=== PATIENT | female | born 1990 | race Caucasian/White ===

== ENCOUNTER 2021-05-04 04:59 | Emergency (ER) | payer OTHER, SELFPAY ==
--- NOTE | ~2021-05-04 | XR_ITS ---
EXAMINATION: XR CHEST CLINICAL INFORMATION: Chest pain COMPARISON: 07/19/2019 TECHNIQUE: Frontal view of the chest was obtained. FINDINGS: Cardiac leads overlie the chest. The lungs are well expanded. There is no focal consolidation, edema, or effusion. No pneumothorax. The cardiomediastinal silhouette is within normal limits. No acute osseous abnormality. XR/XR chest 1V IMPRESSION: Clear lungs.
[2021-05-04 05:04] VITALS: BP 124/81; PULSE 77; RESP 16; TEMP 36.9; O2SAT 99; BMI 25.0
[2021-05-04 05:15] VITALS: PULSE 72
--- NOTE | 2021-05-04 05:28 | ED.CHESTPAIN ---
HPI - Chest Pain General Chief Complaint: Chest Pain Stated Complaint: chest pain, dizziness Time Seen by Provider: 05/04/21 05:28 Source: patient Mode of arrival: ambulatory Limitations: no limitations History of Present Illness HPI narrative: Patient with increased stress anxiety of heart attack in 2018 while sleep comes here for chronic mid chest pain which is going on for months was here in 2019 for same patient describes pain in the lower chest and epigastric area states constant no relation with exercise no relation with food no nausea no vomiting no shortness of breath patient does not get good sleep lately no history of substance abuse no significant family history of coronary artery disease Related Data Previous Rx's Medication Instructions Recorded lorazepam 0.5 mg tablet (Ativan) 0.5 mg PO BEDTIME PRN #20 tab 05/04/21 omeprazole 20 mg capsule,delayed 20 mg PO DAILY #30 cap 05/04/21 release Allergies Allergy/AdvReac Type Severity Reaction Status Date / Time blackberry [BLACKBERRY] Allergy Unknown THROAT Unverified 06/10/20 17:15 CLOSES raspberry [RASPBERRY] Allergy Unknown THROAT Unverified 06/10/20 17:15 CLOSES Review of Systems Review of Systems: Yes all other systems are reviewed and are negative PMFSH Social History Social History Advance Directives: No Advance Directives Information Provided: No Patient : No Physical Exam Vital Signs: Vital Signs: Last Vital Signs Temp 98.5 F 05/04/21 05:04 Pulse 77 05/04/21 05:04 Resp 16 05/04/21 05:04 BP 124/81 05/04/21 05:04 Pulse Ox 99 05/04/21 05:04 Body Mass Index 25.0 Appearance: Alert. Oriented X3. No acute distress. Slightly anxious Eyes: No pallor or icterus ENT: Pharynx normal. Oral Mucosa moist Neck: Normal inspection. Neck supple. CVS: Normal heart rate and rhythm. Pulses normal. Respiratory: No respiratory distress. Equal air entry bilateral, no wheezing/rales/rhonchi Abdomen: Soft and mild tenderness epigastric area, Bowel sounds are present, no mass palpable, no CVA tenderness Skin: Skin warm and dry. Normal skin color. Normal skin turgor. Extremities: No lower extremity edema. No calf tenderness Neuro: Oriented X 3. MDM - Chest Pain MDM Narrative Medical decision making narrative: Patient with anxiety stress atypical chest pain for months chest x-ray and EKG normal discharge patient home on Ativan and Prilosec ECG Data ECG #1: Attestation: I personally reviewed and interpreted this ECG as follows: Interpretation: Normal sinus rhythm heart rate 81 beats per minute normal intervals normal axis no acute ST wave changes impression normal EKG Discharge Plan Discharge Clinical Impression: Atypical chest pain, Anxiety Patient Disposition: Home, Self-Care Instructions: Chest Pain (ED), Anxiety (ED) Additional Instructions: Rest at home, take medication for anxiety follow with PCP Prescriptions: New lorazepam [Ativan] 0.5 mg tablet 0.5 mg PO BEDTIME PRN (Reason: anxiety) Qty: 20 RF: 0 omeprazole 20 mg capsule,delayed release(DR/EC) 20 mg PO DAILY Qty: 30 RF: 0 Interventions: ED Discharge Assessment Last Done: 05/04/21 06:31 Discharge Date/Time: 05/04/21 06:31
--- NOTE | 2021-05-04 05:35 | ECG_ITS ---
Test Reason : CHEST PAIN Blood Pressure : / mmHG Vent. Rate : 081 BPM Atrial Rate : 081 BPM P-R Int : 154 ms QRS Dur : 082 ms QT Int : 400 ms P-R-T Axes : 029 062 041 degrees QTc Int : 464 ms Normal sinus rhythm Normal ECG When compared with ECG of 19-JUL-2019 09:28, Nonspecific T wave abnormality has replaced inverted T waves in Inferior leads T wave amplitude has increased in Anterior leads Referred By: John Brown Electronically Signed By:JAMES GALLARDO MD
[2021-05-04] MEDS: Lidocaine HCl Viscous 2 % 15 ML SOLUTION MUCOUS MEM (05:40)
[2021-05-04] MEDS: Magnesium Hydrox/Alum Hydrox 30 ML ORAL.SUSP 15 ML PO (05:40)
== END 2021-05-04 06:31 | disposition home or self-care (01) ==
PROVIDERS: Emergency Provider Internal Medicine; PCP Pediatrics
DX: R07.89 Other chest pain (principal); F41.9 Anxiety disorder, unspecified
CPT/HCPCS: 71045; 93005; 99284

== ENCOUNTER 2021-11-24 10:00 | Emergency (ER) | payer MEDICAID, SELFPAY ==
--- NOTE | ~2021-11-24 | CT_ITS ---
EXAMINATION: CT CERVICAL SPINE WITHOUT CONTRAST CLINICAL INFORMATION: Neck pain status post fall COMPARISON: Plain film study of July 18, 2012 TECHNIQUE: CT cervical spine without intrathecal contrast with coronal and sagittal reconstructions. This CT examination was performed using dose optimization techniques as appropriate, variously including the following: *Automated exposure control *Adjustment of mA and/or kV according to patient size (this includes techniques or standardized protocols for targeted exams where dose is matched to indication/reason for exam; i.e. extremities or head) *Use of iterative reconstruction technique DLP: 434 mGy-cm FINDINGS: No abnormal prevertebral soft tissue swelling is seen. Paraspinal muscle fat planes are maintained. No acute cervical spine fracture is noted. The disc spaces are maintained. No neural foraminal encroachment is appreciated. No apical lung mass is seen. CT/CT cervical spine wo con IMPRESSION: No significant abnormality of the cervical spine identified.
--- NOTE | ~2021-11-24 | MR_ITS ---
EXAMINATION: MR BRAIN WITHOUT CONTRAST CLINICAL INFORMATION: Status post fall vision changes. COMPARISON: Head CT dated 11/24/2021. TECHNIQUE: Multiplanar, multisequence imaging of the brain was performed without contrast. FINDINGS: No diffusion abnormalities are identified to suggest an acute or subacute infarct. The ventricles are normal in size. No mass effect or midline shift is seen. No brain parenchymal signal abnormality is noted. No extra-axial fluid collections are seen. The brainstem and cerebellum are normal. The gradient refocused acquisition is normal. The craniovertebral junction, marrow signal, and midline structures are normal. The major intracranial flow voids at the level of the craig of [place] are preserved. The dural venous sinus flow voids are maintained. The mastoid air cells are well aerated. There is mild mucosal thickening in the paranasal sinuses. MR/MR head/brain wo con IMPRESSION: Normal MRI of the brain. No acute process.
--- NOTE | ~2021-11-24 | CT_ITS ---
EXAMINATION: CT HEAD WITHOUT CONTRAST CLINICAL INFORMATION: Vomiting and dizziness. COMPARISON: None TECHNIQUE: Contiguous axial imaging was performed from the skull base to vertex without intravenous administration of contrast. This CT examination was performed using dose optimization techniques as appropriate, variously including the following: *Automated exposure control *Adjustment of mA and/or kV according to patient size (this includes techniques or standardized protocols for targeted exams where dose is matched to indication/reason for exam; i.e. extremities or head) *Use of iterative reconstruction technique DLP: 596 mGy-cm FINDINGS: There is no evidence of acute intracranial hemorrhage or territorial infarction. No abnormal mass effect or midline shift is seen. [place] to white matter differentiation is well preserved. No extra-axial fluid collections are identified. The ventricles are normal in size. There is no abnormal attenuation within the brain parenchyma. The osseous structures and soft tissues are normal. The mastoid air cells are well aerated. There is mild mucosal thickening in the maxillary sinuses. CT/CT head/brain wo con IMPRESSION: No acute intracranial pathology.
[2021-11-24 10:34] VITALS: BP 125/83; PULSE 103; RESP 18; TEMP 36.8; O2SAT 100; BMI 26.6
--- NOTE | 2021-11-24 11:56 | ED_ITS ---
HPI - Head Injury General Chief complaint: Head Injury Stated complaint: fell 2x wks dizzy nausea Time Seen by Provider: 11/24/21 11:47 Source: patient Mode of arrival: ambulatory Limitations: no limitations History of Present Illness HPI Narrative: 31-year-old female presents to the ER for evaluation of head injury after a fall almost 2 and half weeks ago. She reports she was walking her dog when she slipped on a patch of ice and fell backward and hit her posterior head. She did not lose consciousness and was witnessed by her father. She reports seeing stars afterward and not feeling well in the days afterward. For the last 5 days her symptoms have worsened. She reports worsening pressure behind her eyes, buzzing/white noise sounds in her ears, dizziness and recurrent vomiting. She reports 10 episodes in the last 5 days. She also reports neck pain. Denies abddominal pain or chance of . She is not on anticoagulation. She called her PCP and her Neurologist (who she sees for migrains and pineal gland tumor) instructed her to come to the ER for CT scan. MD Complaint: head injury, head pain and fall Onset (ago): week(s) Mechanism of Injury: fall Place: outdoors Loss of Consciousness: no Location of injury: occipital Severity: moderate Severity scale (1-10): 6 Quality: aching and throbbing Radiation: neck Other Injuries: none Associated symptoms: vision changes, nausea, vomiting, vertigo and neck pain Related Data Previous Rx's Medication Instructions Recorded lorazepam 0.5 mg tablet (Ativan) 0.5 mg PO BEDTIME PRN #20 tab 05/04/21 omeprazole 20 mg capsule,delayed 20 mg PO DAILY #30 cap 05/04/21 release sukhvwamyx-bndfndjjooukx-sisasxhe 1 cap PO Q8H PRN #10 cap 11/24/21 50 mg-300 mg-40 mg capsule (Fioricet) Allergies Allergy/AdvReac Type Severity Reaction Status Date / Time blackberry [BLACKBERRY] Allergy Unknown THROAT Verified 11/24/21 10:34 CLOSES raspberry [RASPBERRY] Allergy Unknown THROAT Verified 11/24/21 10:34 CLOSES Review of Systems Review of Systems: Constitutional: No Fever, No Chills ENT/Mouth: No sore throat, No Rhinorrhea, No Swallowing Difficulty Eyes: + Eye Pain, No Swelling, No Redness, +vision changes Cardiovascular: No Chest Pain, No SOB Respiratory: No Cough, No Sputum Gastrointestinal: + Nausea, + Vomiting, No Diarrhea, No abdominal Pain, No Hematochezia, No Melena Genitourinary: No Dysuria, No Urinary Frequency, No Hematuria Musculoskeletal: No joint pain, + Myalgias Skin: No Skin Lesions, No rash Neuro: No Weakness, No Numbness, + Dizziness, + Headache Psych: No Anxiety/Panic, No Depression Heme/Lymph: No Bruising PMFSH Social History Social History Patient Tobacco Use Status: Never used Tobacco Use of substances other than those prescribed or required for medical reasons: No Advance Directives: No Advance Directives Information Provided: No Physical Exam Vital Signs: Vital Signs: Last Vital Signs Temp 98.1 F 11/24/21 15:03 Pulse 86 11/24/21 15:03 Resp 16 11/24/21 15:03 BP 116/80 11/24/21 15:03 Pulse Ox 100 11/24/21 15:03 BMI result Body Mass Index 26.6 Appearance: Alert. Oriented X3. No acute distress. Head: normocephalic, atrumatic. Nontender Eyes: Pupils equal, round and reactive to light. EOMI, no nystagmus ENT: Pharynx normal. Normal EAC and TM's bilaterally. Neck: Normal inspection. Neck supple. Midline tenderness throughout CVS: Normal heart rate and rhythm. Pulses normal. Respiratory: No respiratory distress. Breath sounds normal. Abdomen: Soft and nontender. +BS x4 Skin: Skin warm and dry. Normal skin color. Normal skin turgor. No rashes. Extremities: No lower extremity edema. Atrauamtic x4 Neuro: Oriented X 3. No motor deficit. No sensory deficit. Steady gait. Course Course Course Narrative: 31-year-old female presenting to the ER with 2 weeks of symptoms after a fall with head strike. There is concern for possible slow ICH, CT scan is pending. Her neuro exam is nonfocal. Basic labs ordered as well given her vomiting. Will monitor closely. Reevaluation(s) Reevaluation #1: Labs unremarkable and CT is pending. Reevaluation #2: CT scan of her head and neck were unremarkable. Case was reviewed with Dr. Wilkins. Given her progressing in ongoing symptoms there is concern for possible missed findings on CT scan. She does have a history of a pineal gland tumor. Will proceed with MRI for further evaluation. Patient agreeable with plan. Reevaluation #3: MRI is normal. This is reassuring. At this time she is stable for discharge home with plan to follow-up with her neurologist. She will ask about a post concussion clinic. Will give a short course of Fioricet as needed for migraine headaches. Patient agrees with plan. Stable for DC. MDM - Head Injury Lab Data Result diagrams: 11/24/21 12:01 11/24/21 12:01 Labs: Lab Results 11/24/21 11/24/21 11/24/21 Range/Units 12: 12: 12:07 WBC 6.0 (4.8-10.8) X10*3/uL RBC 4.45 (4.20-5.50) X10*6/uL Hgb 13.7 (12.0-16.0) g/dl Hct 41.8 (37.0-47.0) % MCV 93.9 (80.0-98.0) fL MCH 30.8 (27.0-33.0) pg MCHC 32.8 (31.0-35.0) g/dl RDW 12.2 (11.0-16.0) % Plt Count 257 (160-400) X10*3/uL MPV 9.3 L (9.4-12.3) fL Immature Gran % (Auto) 0.3 (0.0-0.4) % Neut % (Auto) 59.1 (45-73) % Lymph % (Auto) 31.8 (20-40) % [place] % (Auto) 7.2 (2-11) % Eos % (Auto) 1.3 (0-4) % Baso % (Auto) 0.3 (0-2) % Lymph # (Auto) 1.9 (1.2-4.9) X10*3/uL [place] # (Auto) 0.4 (0.1-1.2) X10*3/uL Eos # (Auto) 0.1 (0.0-0.4) X10*3/uL Baso # (Auto) 0.0 (0.0-0.2) X10*3/uL Abs Immat Gran (auto) 0.02 (0.00-0.03) X10*3/uL Absolute Neuts (auto) 3.5 (2.0-8.3) x10*3/uL Absolute Nucleated RBC 0.000 (0.0-0.012) X10*3/uL Nucleated RBC % (auto) 0.0 (0.0-0.2) /100WBC Sodium 139 (135-145) mmol/L Potassium 4.8 (3.3-5.1) mmol/L Chloride 106 (96-108) mmol/L Carbon Dioxide 25 (22-29) mmol/L Anion Gap 13 (12-20) BUN 15 (9-16) mg/dL Creatinine 0.72 (0.5-1.4) mg/dL Estim Creat Clear Calc 123.0 Estimated GFR > 60 Random Glucose 102 (60-115) mg/dL Calcium 9.6 (8.4-10.2) mg/dL Magnesium 2.2 (1.6-2.6) mg/dL Total Bilirubin 1.3 H (0.0-1.0) mg/dL Direct Bilirubin 0.4 (0.0-0.5) mg/dL AST 13 (5-31) U/L ALT 16 (0-31) U/L Alkaline Phosphatase 52 (39-117) U/L Total Protein 7.3 (6.5-8.0) g/dL Albumin 4.5 (3.5-5.0) g/dL Urine Test NEGATIVE (NEGATIVE) Critical Care Time Critical Care Time Critical Care Time: No Discharge Plan Discharge Clinical Impression: Concussion without loss of consciousness Patient Disposition: Home, Self-Care Instructions: Concussion (ED), Chronic Post Traumatic Headache (ED) Additional Instructions: Your CT scans and MRI today were normal. This is very reassuring. Recommend ongoing rest, minimize screen time. Recommend following up with your neurologist and a post concussion clinic. Take the prescribed medication as needed for headaches. If you develop new or worsening symptoms call 911 or come back to the ER for further evaluation. Prescriptions: New wkyyeywpbv-frrtlduenhzxr-bgas [Fioricet] 50-300-40 mg capsule 1 cap PO Q8H PRN (Reason: headache) Qty: 10 0RF No Action lorazepam [Ativan] 0.5 mg tablet 0.5 mg PO BEDTIME PRN (Reason: anxiety) Qty: 20 0RF omeprazole 20 mg capsule,delayed release(DR/EC) 20 mg PO DAILY Qty: 30 0RF Referrals: Bailee Melara DO [Primary Care Provider] - 2 days (f.u concussion)
[2021-11-24 12:07] LABS: MANUAL DIFF FLAG NO
[2021-11-24 12:11] LABS: Basophils Percent Auto 0.3 % (0-2); Eosinophils Absolute Auto 0.1 X10*3/uL (0.0-0.4); Eosinophils Percent Auto 1.3 % (0-4); Hematocrit 41.8 % (37.0-47.0); Hemoglobin 13.7 g/dl (12.0-16.0); Imm Gran Abs Auto 0.02 X10*3/uL (0.00-0.03); Imm Gran Pct Auto 0.3 % (0.0-0.4); Lymphocytes Absolute Auto 1.9 X10*3/uL (1.2-4.9); Lymphocytes Percent Auto 31.8 % (20-40); Mean Corpuscular HGB Conc 32.8 g/dl (31.0-35.0); Mean Corpuscular Hemoglobin 30.8 pg (27.0-33.0); Mean Corpuscular Volume 93.9 fL (80.0-98.0); Mean Platelet Volume 9.3 fL (9.4-12.3); Monocytes Absolute Auto 0.4 X10*3/uL (0.1-1.2); Monocytes Percent Auto 7.2 % (2-11); Neutrophils Absolute Auto 3.5 x10*3/uL (2.0-8.3); Neutrophils Percent Auto 59.1 % (45-73); Platelet Count 257 X10*3/uL (160-400); Red Blood Count 4.45 X10*6/uL (4.20-5.50); Red Cell Distribution Width 12.2 % (11.0-16.0)
[2021-11-24 12:17] LABS: UPreg QC Valid YES
[2021-11-24 12:18] LABS: Urine Pregnancy NEGATIVE (NEGATIVE)
[2021-11-24 12:24] LABS: Alanine Aminotransferase 16 U/L (0-31); Albumin Level 4.5 g/dL (3.5-5.0); Alkaline Phosphatase 52 U/L (39-117); Anion Gap 13 (12-20); Aspartate Amino Transferase 13 U/L (5-31); Bilirubin Direct 0.4 mg/dL (0.0-0.5); Bilirubin Total 1.3 mg/dL (0.0-1.0); Blood Urea Nitrogen 15 mg/dL (9-16); Calcium 9.6 mg/dL (8.4-10.2); Carbon Dioxide 25 mmol/L (22-29); Chloride 106 mmol/L (96-108); Estimated Glomerular Filt Rate > 60; Glucose Random 102 mg/dL (60-115); Magnesium 2.2 mg/dL (1.6-2.6); Potassium 4.8 mmol/L (3.3-5.1); Sodium 139 mmol/L (135-145); Total Protein 7.3 g/dL (6.5-8.0)
[2021-11-24 13:11] VITALS: BP 117/75; PULSE 80; RESP 16; O2SAT 100
--- NOTE | 2021-11-24 14:16 | PC.NURSE ---
off unit to MRI
[2021-11-24 15:03] VITALS: BP 116/80; PULSE 86; RESP 16; TEMP 36.7; O2SAT 100
== END 2021-11-24 15:23 | disposition home or self-care (01) ==
PROVIDERS: Physician Assistant; Emergency Provider Emergency Medicine; PCP Pediatrics
DX: S06.0X0A Concussion without loss of consciousness, initial encounter (principal); W00.0XXA Fall on same level due to ice and snow, initial encounter; R11.0 Nausea; R42 Dizziness and giddiness; M54.2 Cervicalgia; D49.7 Neoplasm of unspecified behavior of endocrine glands and other parts of nervous system; Y93.K1 Activity, walking an animal; Y92.480 Sidewalk as the place of occurrence of the external cause; Y99.9 Unspecified external cause status
CPT/HCPCS: 36415; 70450; 70551; 72125; 80048; 80076; 81025; 83735; 85025; 99284; 99285

== ENCOUNTER 2022-01-27 17:40 | Emergency (ER) | payer MEDICAID, SELFPAY ==
[2022-01-27 18:37] VITALS: BP 135/87; PULSE 77; RESP 18; TEMP 36.1; O2SAT 100; BMI 25.8
[2022-01-27 18:49] LABS: MANUAL DIFF FLAG NO
[2022-01-27 18:56] LABS: Basophils Percent Auto 0.5 % (0-2); Eosinophils Absolute Auto 0.1 X10*3/uL (0.0-0.4); Eosinophils Percent Auto 0.8 % (0-4); Hematocrit 41.4 % (37.0-47.0); Hemoglobin 13.7 g/dl (12.0-16.0); Imm Gran Abs Auto 0.03 X10*3/uL (0.00-0.03); Imm Gran Pct Auto 0.3 % (0.0-0.4); Lymphocytes Absolute Auto 2.6 X10*3/uL (1.2-4.9); Lymphocytes Percent Auto 29.1 % (20-40); Mean Corpuscular HGB Conc 33.1 g/dl (31.0-35.0); Mean Corpuscular Hemoglobin 31.1 pg (27.0-33.0); Mean Corpuscular Volume 94.1 fL (80.0-98.0); Mean Platelet Volume 9.8 fL (9.4-12.3); Monocytes Absolute Auto 0.6 X10*3/uL (0.1-1.2); Monocytes Percent Auto 6.8 % (2-11); Neutrophils Absolute Auto 5.5 x10*3/uL (2.0-8.3); Neutrophils Percent Auto 62.5 % (45-73); Platelet Count 306 X10*3/uL (160-400); Red Cell Distribution Width 12.2 % (11.0-16.0); White Blood Count 8.8 X10*3/uL (4.8-10.8)
[2022-01-27 19:03] LABS: Anion Gap 14 (12-20); Blood Urea Nitrogen 8 mg/dL (9-16); Calcium 9.5 mg/dL (8.4-10.2); Carbon Dioxide 21 mmol/L (22-29); Chloride 108 mmol/L (96-108); Creatinine Clr Calc Pharmacy 115.7; Estimated Glomerular Filt Rate > 60; Glucose Random 99 mg/dL (60-115); Potassium 4.6 mmol/L (3.3-5.1); Sodium 138 mmol/L (135-145)
[2022-01-27 20:16] LABS: Lipase 17 U/L (8-78)
[2022-01-27 21:14] VITALS: BP 135/84; PULSE 76; RESP 16; O2SAT 100
== END 2022-01-27 23:31 | disposition left against medical advice (07) ==
PROVIDERS: Emergency Provider Emergency Medicine; PCP Pediatrics
DX: R10.9 Unspecified abdominal pain (principal)
CPT/HCPCS: 36415; 80048; 83690; 85025; 99283

== ENCOUNTER 2022-01-28 09:48 | Emergency (ER) | payer MEDICAID, SELFPAY ==
--- NOTE | ~2022-01-28 | CT_ITS ---
EXAMINATION: CT ABDOMEN AND PELVIS WITHOUT CONTRAST CLINICAL INFORMATION: Left upper quadrant and epigastric pain. COMPARISON: None TECHNIQUE: Multidetector volumetric imaging was performed from the superior aspect of the liver through the pubic symphysis. Sagittal and coronal reformatted images were obtained on the technologist's workstation. This CT examination was performed using dose optimization techniques as appropriate, variously including the following: *Automated exposure control *Adjustment of mA and/or kV according to patient size (this includes techniques or standardized protocols for targeted exams where dose is matched to indication/reason for exam; i.e. extremities or head) *Use of iterative reconstruction technique DLP: 599 mGy-cm FINDINGS: LUNG BASES: Normal. No pulmonary consolidation or pleural effusion at either lung base. LIVER: The liver has normal size, shape, and attenuation. No evidence of liver mass. GALLBLADDER AND BILIARY TREE: Gallbladder is without radiopaque stones, wall thickening or pericholecystic fluid. No dilated bile ducts. PANCREAS: Normal. No edema, pancreatic ductal dilatation or mass. SPLEEN: Normal. ADRENAL GLANDS: Normal. KIDNEYS AND URETERS: The kidneys have normal size and cortical thickness. No perinephric fluid collection. No urolithiasis or hydroureteronephrosis. BLADDER: Normal. No calculi or wall thickening. BOWEL AND PERITONEUM: Stomach is unremarkable. No dilated loops of bowel. The appendix is normal. No overt bowel wall thickening or mesenteric fat stranding. No ascites or pneumoperitoneum. ABDOMINAL WALL: Unremarkable. VASCULATURE: Unremarkable. LYMPH NODES: No pathologic sized lymph nodes in the abdomen or pelvis. No inguinal lymphadenopathy. PELVIC VISCERA: The uterus is normal in size. There appears to be a 2.7 cm subserosal leiomyoma of the anterior left uterine body. If the patient has any pelvic pain, then the uterus and adnexa could be further assessed with ultrasound. Otherwise, uterus and adnexa are unremarkable. A normal, physiologic amount of free fluid is present in the posterior cul-de-sac. SKELETAL: Unremarkable. CT/CT abdomen pelvis wo con IMPRESSION: * No specific source of epigastric or left upper quadrant pain is identified. No evidence of inflammatory change or obstruction along the gastrointestinal tract. * No evidence of urolithiasis or hydroureteronephrosis. * There appears to be a 2.7 cm subserosal leiomyoma of the uterus which is otherwise unremarkable. A normal, physiologic amount of free fluid is present in the posterior cul-de-sac.
--- NOTE | ~2022-01-28 | XR_ITS ---
EXAMINATION: XR CHEST CLINICAL INFORMATION: Rib pain. COMPARISON: 05/04/2021 chest radiograph. TECHNIQUE: 2 views of the chest were obtained. FINDINGS: No significant abnormality is noted involving the heart, lungs, mediastinum, bony thorax or soft tissues. XR/XR chest 2V IMPRESSION: No acute cardiopulmonary process.
[2022-01-28 09:55] VITALS: BP 132/78; PULSE 90; RESP 16; TEMP 36.2; O2SAT 100; BMI 25.8
--- NOTE | 2022-01-28 10:57 | ED_ITS ---
HPI - Abdominal Pain General Chief Complaint: Abdominal Pain Stated Complaint: abd pain/back pain/faint Time Seen by Provider: 01/28/22 10:56 Source: patient Mode of arrival: ambulatory Limitations: no limitations History of Present Illness HPI narrative: 31-year-old female presents with abdominal pain for the last nine months, lightheadedness and fatigue for the last 2 weeks, and bilateral leg tingling for the last week. Patient states she has had abdominal pain for 9 months, that is constant with nausea. Pain is better when she is lying down, worse with movement. States the pain is a constant 5/10, it is in her epigastrium and worse in her left upper quadrant radiating to her right upper quadrant and wrapping around her bilateral upper back. Pain does not seem to be associated with eating. Is not worse or better with eating. [place] or fatty foods do not make it worse. PCP has thought she had reflux, she had a barium swallow, and EGD, she tried omeprazole and Carafate, says nothing has helped. No vomiting, no diarrhea, normal bowel movements. No abdominal surgeries. Last menstrual period was January 22, 2022. No vaginal bleeding, vaginal discharge, or pelvic cramping. Not sexually active. Does not drink alcohol, patient states she has been taking ibuprofen for migraines often Patient states she has been lightheaded and fatigued for the last 2 weeks. States yesterday she felt very tired and faint walking out of a store. Patient has no prior history of DVT or PE, no hemoptysis, no leg swelling, no recent trauma or surgery, she is not tachycardic, she is satting 100% on room air, she does not use any estrogen or hormone products Patient states for the last week her bilateral lateral thighs have been intermittently tingling, and her feet have felt numb. States last night in bed she could not feel her toes. On exam, patient has bilateral lower extremity intact pulses, sensation, motor strength, DTRs. Patient has a normal gait. Patient has a neurologist who she last saw 3 months ago at [facility] where she had an MRI for pineal gland tumor, neurologist had no concerns Patient has a past medical history of migraines, pineal gland tumor, left ankle fracture and right wrist fracture. She is not on any daily medication. Related Data Previous Rx's Medication Instructions Recorded lorazepam 0.5 mg tablet (Ativan) 0.5 mg PO BEDTIME PRN #20 tab 05/04/21 omeprazole 20 mg capsule,delayed 20 mg PO DAILY #30 cap 05/04/21 release vfinbybsro-tnkejwwvdjspy-lqhlmfwe 1 cap PO Q8H PRN #10 cap 11/24/21 50 mg-300 mg-40 mg capsule (Fioricet) Allergies Allergy/AdvReac Type Severity Reaction Status Date / Time blackberry [BLACKBERRY] Allergy Unknown THROAT Verified 11/24/21 10:34 CLOSES raspberry [RASPBERRY] Allergy Unknown THROAT Verified 11/24/21 10:34 CLOSES Review of Systems Constitutional: Denies body ache(s), Denies chills, Reports fatigue, Denies fever(s), Denies headache(s), Denies malaise and Denies weakness Eyes: Denies blurry vision and Denies diplopia Denies vertigo, Denies dizziness, Denies otalgia, Denies headache(s), Denies mouth pain, Denies post nasal drip, Denies sinus pain, Denies sinus pressure, Denies sore throat and Denies throat swelling Cardiovascular: Denies chest pain, Denies syncope, Denies leg edema, Reports l ightheadedness, Denies Loss of Consciousness, Denies palpitations, Denies dyspnea and Denies dyspnea on exertion Respiratory: Denies chest congestion, Denies cough, Denies pain on inspiration, Denies dyspnea and Denies dyspnea on exertion Gastrointestinal: Reports abdominal pain, Denies melena, Denies hematochezia, Denies constipation, Denies diarrhea, Reports nausea and Denies vomiting Genitourinary: Denies abnormal vaginal bleeding, Denies dysuria, Denies flank pain, Denies urinary incontinence and Denies vaginal discharge Musculoskeletal: Reports numbness, Reports tingling and Reports other (pain from abdomen radiates to back) Denies confusion, Denies vertigo, Denies dizziness, Denies syncope, Denies headache(s), Reports numbness, Reports tingling and Denies weakness Psychiatric: Denies anxiety, Denies confusion and Denies depression Endocrine: Reports fatigue and Denies palpitations Allergic/Immunologic: Denies throat swelling PMFSH Social History Social History Patient Tobacco Use Status: Never used Tobacco Advance Directives: No Advance Directives Information Provided: No Physical Exam ED Vital Signs: Vital Signs - 24 hr 01/28/22 09:55 01/28/22 13:09 Temperature 97.2 F 98.2 F Pulse Rate 90 78 Respiratory Rate 16 16 Blood Pressure 132/78 112/69 Pulse Oximetry 100 100 BMI result Body Mass Index 25.8 Const General: healthy appearing, no acute distress, well developed, alert and awake; No confusion Nutritional Appearance: well nourished Orientation/consciousness: patient oriented x3 and No confusion Limitations: no limitations HENMT Head: Yes normal to inspection, Yes normocephalic and Yes atraumatic Ears: hearing grossly normal bilaterally, external ears normal, TM's normal bilaterally and EAC's normal General nose exam: Normal external nose present Face and sinus: Yes normal facial exam and Yes sinuses nontender Mouth: Normal oral and palatal mucosa present Throat: Yes posterior oropharynx normal Eyes Conjunctivae: conjunctivae normal Pupils: Equal, round and reactive pupils present EOM: EOMs intact bilaterally Neck Neck: Yes full ROM, Yes no lymphadenopathy and Yes supple Chest Chest palpation & inspection: normal inspection of the chest, no crepitus and tenderness (Bilateral anterior ribs) Resp Effort & Inspection: normal respiratory effort and able to speak in complete sentences Auscultation: clear to auscultation bilaterally, no crackles, no rales, no rhonchi and no wheezes Cardio Rate: regular rate Rhythm: regular rhythm Heart sounds: S1 normal heart sound present and S2 normal heart sound present GI Inspection: Yes normal to inspection Palpation (GI): Soft to palpation, Tenderness to palpation present (GI) in the epigastrum, in the LUQ and in the RUQ, Guarding due to palpation present (GI) in the LUQ and other (epigastrium) and not rigid Percussion: Yes normal to percussion Auscultation: normal bowel sounds General: Yes CVA tenderness on the left Back/Spine/Pelvis Back: CVA tenderness Skin General skin exam: no rashes or lesions noted Neuro General: patient oriented x3 and No confusion Cranial nerves: Yes Equal, round and reactive pupils present Extrem General: Yes normal to inspection and Yes full ROM Psych Appearance: grossly normal Affect: normal affect Attitude: cooperative Thought process: Normal thought process present Course Course Course Narrative: 31-year-old female presents for abdominal pain, feeling fatigued and lightheaded, and bilateral leg numbness. On exam, patient is tender in her right upper quadrant, left upper quadrant, and epigastrium, is guarding in epigastrium and left upper quadrant. 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 CT/CT abdomen pelvis wo con IMPRESSION: *? No specific source of epigastric or left upper quadrant pain is identified. No evidence of inflammatory change or obstruction along the gastrointestinal tract. *? No evidence of urolithiasis or hydroureteronephrosis. *? There appears to be a 2.7 cm subserosal leiomyoma of the uterus which is otherwise unremarkable. A normal, physiologic amount of free fluid is present in the posterior cul-de-sac. MDM - Abdominal Pain Lab Data Result diagrams: 01/28/22 11:54 01/28/22 11:54 Labs: Lab Results 01/28/22 01/28/22 01/28/22 Range/Units 11:54 11:54 11:54 WBC 6.1 (4.8-10.8) X10*3/uL RBC 4.29 (4.20-5.50) X10*6/uL Hgb 13.3 (12.0-16.0) g/dl Hct 40.5 (37.0-47.0) % MCV 94.4 (80.0-98.0) fL MCH 31.0 (27.0-33.0) pg MCHC 32.8 (31.0-35.0) g/dl RDW 12.2 (11.0-16.0) % Plt Count 269 (160-400) X10*3/uL MPV 9.5 (9.4-12.3) fL Immature Gran % (Auto) 0.3 (0.0-0.4) % Neut % (Auto) 64.5 (45-73) % Lymph % (Auto) 26.9 (20-40) % [place] % (Auto) 7.3 (2-11) % Eos % (Auto) 0.7 (0-4) % Baso % (Auto) 0.3 (0-2) % Lymph # (Auto) 1.7 (1.2-4.9) X10*3/uL [place] # (Auto) 0.5 (0.1-1.2) X10*3/uL Eos # (Auto) 0.0 (0.0-0.4) X10*3/uL Baso # (Auto) 0.0 (0.0-0.2) X10*3/uL Abs Immat Gran (auto) 0.02 (0.00-0.03) X10*3/uL Absolute Neuts (auto) 4.0 (2.0-8.3) x10*3/uL Absolute Nucleated RBC 0.000 (0.0-0.012) X10*3/uL Nucleated RBC % (auto) 0.0 (0.0-0.2) /100WBC Sodium 140 (135-145) mmol/L Potassium 4.9 (3.3-5.1) mmol/L Chloride 108 (96-108) mmol/L Carbon Dioxide 24 (22-29) mmol/L Anion Gap 13 (12-20) BUN 10 (9-16) mg/dL Creatinine 0.74 (0.5-1.4) mg/dL Estim Creat Clear Calc 114.2 Estimated GFR > 60 Random Glucose 99 (60-115) mg/dL Calcium 9.7 (8.4-10.2) mg/dL Total Bilirubin 1.1 H (0.0-1.0) mg/dL Direct Bilirubin 0.4 (0.0-0.5) mg/dL AST 16 (5-31) U/L ALT 22 (0-31) U/L Alkaline Phosphatase 47 (39-117) U/L Troponin I High Sens < 3.5 (<3.5-17.0) ng/L Total Protein 7.1 (6.5-8.0) g/dL Albumin 4.3 (3.5-5.0) g/dL Lipase 12 (8-78) U/L Urine Color Urine Appearance Urine pH (5.0-8.0) Ur Specific [place] (1.005-1.025) Urine Protein (NEG-TRACE) MG/DL Urine Glucose (UA) (NEG) MG/DL Urine Ketones (NEG) MG/DL Urine Blood (NEG) Urine Nitrite (NEG) Ur Leukocyte Esterase (NEG) Urine Test (NEGATIVE) 01/28/22 01/28/22 Range/Units 11:54 13:11 WBC (4.8-10.8) X10*3/uL RBC (4.20-5.50) X10*6/uL Hgb (12.0-16.0) g/dl Hct (37.0-47.0) % MCV (80.0-98.0) fL MCH (27.0-33.0) pg MCHC (31.0-35.0) g/dl RDW (11.0-16.0) % Plt Count (160-400) X10*3/uL MPV (9.4-12.3) fL Immature Gran % (Auto) (0.0-0.4) % Neut % (Auto) (45-73) % Lymph % (Auto) (20-40) % [place] % (Auto) (2-11) % Eos % (Auto) (0-4) % Baso % (Auto) (0-2) % Lymph # (Auto) (1.2-4.9) X10*3/uL [place] # (Auto) (0.1-1.2) X10*3/uL Eos # (Auto) (0.0-0.4) X10*3/uL Baso # (Auto) (0.0-0.2) X10*3/uL Abs Immat Gran (auto) (0.00-0.03) X10*3/uL Absolute Neuts (auto) (2.0-8.3) x10*3/uL Absolute Nucleated RBC (0.0-0.012) X10*3/uL Nucleated RBC % (auto) (0.0-0.2) /100WBC Sodium (135-145) mmol/L Potassium (3.3-5.1) mmol/L Chloride (96-108) mmol/L Carbon Dioxide (22-29) mmol/L Anion Gap (12-20) BUN (9-16) mg/dL Creatinine (0.5-1.4) mg/dL Estim Creat Clear Calc Estimated GFR Random Glucose (60-115) mg/dL Calcium (8.4-10.2) mg/dL Total Bilirubin (0.0-1.0) mg/dL Direct Bilirubin (0.0-0.5) mg/dL AST (5-31) U/L ALT (0-31) U/L Alkaline Phosphatase (39-117) U/L Troponin I High Sens (<3.5-17.0) ng/L Total Protein (6.5-8.0) g/dL Albumin (3.5-5.0) g/dL Lipase (8-78) U/L Urine Color YELLOW Urine Appearance HAZY Urine pH 7.0 (5.0-8.0) Ur Specific [place] 1.015 (1.005-1.025) Urine Protein NEG (NEG-TRACE) MG/DL Urine Glucose (UA) NEG (NEG) MG/DL Urine Ketones NEG (NEG) MG/DL Urine Blood NEG (NEG) Urine Nitrite NEG (NEG) Ur Leukocyte Esterase NEG (NEG) Urine Test NEGATIVE (NEGATIVE) ECG Data Interpretation: Normal sinus at a rate of 72, [place] interval 160, QRS 76, QTC 448, no QT prolongation, normal axis, no ST depression or elevation, no T-wave abnormality Discharge Plan Discharge Clinical Impression: Abdominal pain Patient Disposition: Home, Self-Care Instructions: Abdominal Pain (ED) Additional Instructions: Please call your primary care provider for follow-up appointment from today's emergency room visit Please call Gastroenterology at the following number [phone] I have referred you to Gastroenterology, they should be calling you as well Today, your workup was essentially normal, your EKG showed no abnormalities, y our cardiac enzymes were not elevated, your labs are all normal, no evidence of anemia or increased white blood cell count, your liver function tests, kidney function tests, and electrolytes were all normal. You do not have a urine infection. Your blood glucose was normal. Your chest x-ray was normal with no evidence of pneumonia rib fracture, you are not . Your CT showed a small fibroid, otherwise your kidney, pancreas, gallbladder, and all organs were normal Please return to the emergency room for any new or concerning symptoms including chest pain, shortness of breath, severe abdominal pain. Prescriptions: No Action lorazepam [Ativan] 0.5 mg tablet 0.5 mg PO BEDTIME PRN (Reason: anxiety) Qty: 20 0RF omeprazole 20 mg capsule,delayed release(DR/EC) 20 mg PO DAILY Qty: 30 0RF qomzipvwmn-tvulwujtintjx-iujt [Fioricet] 50-300-40 mg capsule 1 cap PO Q8H PRN (Reason: headache) Qty: 10 0RF Referrals: Dewey Powers MD [Physician] -
--- NOTE | 2022-01-28 11:19 | ECG_ITS ---
Test Reason : ABDOMINAL PAIN Blood Pressure : / mmHG Vent. Rate : 072 BPM Atrial Rate : 072 BPM P-R Int : 160 ms QRS Dur : 076 ms QT Int : 410 ms P-R-T Axes : 021 044 027 degrees QTc Int : 448 ms Normal sinus rhythm Normal ECG When compared with ECG of 04-MAY-2021 05:13, No significant change was found Referred By: Poornima Robles Electronically Signed By:Humberto Cash
[2022-01-28 12:01] LABS: MANUAL DIFF FLAG NO
[2022-01-28 12:03] LABS: Basophils Percent Auto 0.3 % (0-2); Eosinophils Percent Auto 0.7 % (0-4); Hematocrit 40.5 % (37.0-47.0); Hemoglobin 13.3 g/dl (12.0-16.0); Imm Gran Abs Auto 0.02 X10*3/uL (0.00-0.03); Imm Gran Pct Auto 0.3 % (0.0-0.4); Lymphocytes Absolute Auto 1.7 X10*3/uL (1.2-4.9); Lymphocytes Percent Auto 26.9 % (20-40); Mean Corpuscular HGB Conc 32.8 g/dl (31.0-35.0); Mean Corpuscular Volume 94.4 fL (80.0-98.0); Mean Platelet Volume 9.5 fL (9.4-12.3); Monocytes Absolute Auto 0.5 X10*3/uL (0.1-1.2); Monocytes Percent Auto 7.3 % (2-11); Neutrophils Percent Auto 64.5 % (45-73); Platelet Count 269 X10*3/uL (160-400); Red Blood Count 4.29 X10*6/uL (4.20-5.50); Red Cell Distribution Width 12.2 % (11.0-16.0); White Blood Count 6.1 X10*3/uL (4.8-10.8)
[2022-01-28 12:04] LABS: Appearance Urine HAZY; Color Urine YELLOW; Glucose Urine UA NEG (NEG); Leukocyte Esterase Urine NEG (NEG); Nitrite Urine NEG (NEG); Specific Gravity - Urine 1.015 (1.005-1.025); Urine Blood NEG (NEG); Urine Ketones NEG (NEG); Urine Protein NEG (NEG-TRACE)
[2022-01-28 12:19] LABS: Alanine Aminotransferase 22 U/L (0-31); Albumin Level 4.3 g/dL (3.5-5.0); Alkaline Phosphatase 47 U/L (39-117); Anion Gap 13 (12-20); Aspartate Amino Transferase 16 U/L (5-31); Bilirubin Direct 0.4 mg/dL (0.0-0.5); Bilirubin Total 1.1 mg/dL (0.0-1.0); Blood Urea Nitrogen 10 mg/dL (9-16); Calcium 9.7 mg/dL (8.4-10.2); Carbon Dioxide 24 mmol/L (22-29); Chloride 108 mmol/L (96-108); Creatinine Clr Calc Pharmacy 114.2; Estimated Glomerular Filt Rate > 60; Glucose Random 99 mg/dL (60-115); Lipase 12 U/L (8-78); Potassium 4.9 mmol/L (3.3-5.1); Sodium 140 mmol/L (135-145); Total Protein 7.1 g/dL (6.5-8.0)
[2022-01-28 12:22] LABS: Troponin-I High Sensitivity < 3.5 ng/L (<3.5-17.0)
[2022-01-28 13:09] VITALS: BP 112/69; PULSE 78; RESP 16; TEMP 36.8; O2SAT 100
[2022-01-28 13:22] LABS: UPreg QC Valid YES; Urine Pregnancy NEGATIVE (NEGATIVE)
== END 2022-01-28 16:07 | disposition home or self-care (01) ==
PROVIDERS: Physician Assistant; Emergency Provider Emergency Medicine Emergency Medical Services; PCP Pediatrics
DX: R10.9 Unspecified abdominal pain (principal); R53.83 Other fatigue; R42 Dizziness and giddiness; R20.0 Anesthesia of skin
CPT/HCPCS: 36415; 71046; 74176; 80053; 81003; 81025; 82248; 83690; 84484; 85025; 93005; 99284

== ENCOUNTER 2022-03-09 13:38 | Outpatient (REF) | payer MEDICAID, SELFPAY ==
[2022-03-09 14:58] LABS: C Reactive Protein 0.11 mg/dL (< or = 0.50)
[2022-03-09 15:03] LABS: Erythrocyte Sedimentation Rate 5 MM/HR (0-20)
[2022-03-09 15:21] LABS: Thyroid Stimulating Hormone 1.21 uIU/mL (0.32-4.0)
[2022-03-13 13:22] LABS: Transglutaminase IgA <1.0 U/mL
[2022-03-14 14:51] LABS: Anti Nuclear Antibody Screen POSITIVE (NEGATIVE)
[2022-03-16 12:32] LABS: Endomysial IgA Antibody Negative (Negative)
== END 2022-03-09 13:39 | disposition home or self-care (01) ==
LOC: HO.LAB 13:38
PROVIDERS: PCP Pediatrics; Visit Provider Physician Assistant
DX: R10.84 Generalized abdominal pain (principal); R19.7 Diarrhea, unspecified; K59.09 Other constipation; R74.01 Elevation of levels of liver transaminase levels; R13.10 Dysphagia, unspecified
CPT/HCPCS: 36415; 84443; 85652; 86038; 86039; 86140; 86231; 86364; 99202

== ENCOUNTER 2022-04-27 08:58 | Outpatient (REF) | payer MEDICAID, SELFPAY ==
--- NOTE | ~2022-04-27 | US_ITS ---
EXAMINATION: US ABDOMEN LIMITED INCLUDING MESENTERIC DOPPLER INTERROGATION CLINICAL INFORMATION: Abdominal pain. COMPARISON: CT abdomen and pelvis on 01/28/2022. TECHNIQUE: Real-time imaging of the abdominal viscera using grayscale and color Doppler techniques. FINDINGS: DOPPLER: Aorta proximal to SMA: 122 cm/s Aorta distal to SMA: 144 cm/s Celiac artery: Inspiration supine: 188 cm/s Expiration erect: 126 cm/s Hepatic artery: 93.8 cm/s Splenic artery: 78 cm/s Proximal SMA: 171 cm/s Mid SMA: 104 cm/s Distal SMA: 82 cm/s SEBAS: 164 cm/s ADDITIONAL FINDINGS: None. US/US SMA IMPRESSION: Normal celiac artery and superior mesenteric artery velocities.
== END 2022-04-27 08:59 | disposition home or self-care (01) ==
LOC: HO.US 08:58
PROVIDERS: Visit Provider Internal Medicine Gastroenterology
DX: R10.9 Unspecified abdominal pain (principal)
CPT/HCPCS: 93976

== ENCOUNTER 2022-06-29 12:03 | Emergency (ER) | payer MEDICAID, SELFPAY ==
[2022-06-29 12:14] VITALS: BP 138/91; PULSE 89; RESP 18; TEMP 37.1; O2SAT 100; BMI 25.8
--- NOTE | 2022-06-29 12:26 | PC.NURSE ---
offered zofran but declined
== END 2022-06-29 20:57 | disposition left against medical advice (07) ==
PROVIDERS: Emergency Provider Emergency Medicine; PCP Pediatrics
DX: R51.9 Headache, unspecified (principal); R11.0 Nausea; R42 Dizziness and giddiness
CPT/HCPCS: 99281

== ENCOUNTER 2022-09-26 11:55 | Day surgery (SDC) | payer MEDICAID, SELFPAY ==
[2022-09-20 09:59] VITALS: BMI 25.8
[2022-09-26 12:01] VITALS: BP 126/86; PULSE 92; RESP 18; TEMP 36.1
--- NOTE | 2022-09-26 12:14 | MHC.SHP ---
Pre-Procedural Eval Section A Date of Service: 09/26/22 Section B Chief Complaint: abnormal bowel habit, dysphagia Details of Present Illness: mother with crohns Relevant Family History (Specify if Yes): Yes Relevant Social History: None Present Medications: see Short Stay Collaborative assessment Medical History: Significant History (dry skin ) History of Previous Operations: Relevant previous surgery/procedure and date(s) (History of ankle surgery History of esophagogastroduodenoscopy (EGD) History of surgery on wrist) Allergies: Allergies Allergy/AdvReac Type Severity Reaction Status Date / Time blackberry [BLACKBERRY] Allergy Unknown THROAT Verified 05/04/22 12:44 CLOSES raspberry [RASPBERRY] Allergy Unknown THROAT Verified 05/04/22 12:44 CLOSES Review of Systems Sugical H&P ROS: Negative: Constitution, Cardiovascular, Respiratory, Neurological, Psychiatric, Hem-Onc, Allergic/Immunologic, Gastrointestinal, Genitourinary, Musculoskeletal, Integumentary, Endocrine and Eyes/Ears/Nose/Throat Exam Surgical H&P Exam: Normal: HEENT, Normal: Heart, Normal: Lungs, Normal: Abdomen, Normal: Skin and Normal: Neurological and Significant Findings: Extremities (double jointed ) Plan Diagnosis/Plan: Unchanged I have reviewed the history and physical and performed a pertinent physical examination on my patient. No changes have occurred unless specified. Time Spent With Patient Time: Total time managing care of this patient today ____ minutes.
[2022-09-26 12:18] LABS: UPreg QC Valid YES; Urine Pregnancy NEGATIVE (NEGATIVE)
[2022-09-26] MEDS: Lactated Ringers 1,000 ML 100 ML IVCONT (12:59)
[2022-09-26] MEDS: Sodium Phosphate,Mono-Dibasic 133 ML ENEMA PR (12:59)
--- NOTE | 2022-09-26 14:07 | W.PM.OPN ---
Operative Note Operative Note Date of Service: 09/26/22 Narrative: Operative Information Procedure Description: EGD, Colonoscopy Indication: dysphagia, abnormal stool habit Anesthesia: MAC FLEXIBLE TRANSORAL UPPER GASTROINTESTINAL ENDOSCOPY AND COLONOSCOPY PROCEDURE NOTE UPPER ENDOSCOPY Consent: Indications for the procedure and potential complications of bleeding, perforation, reaction to medications and missed diagnosis were discussed with the patient and informed consent was obtained. Instrument: Olympus GIF H 190 J mid size upper endoscope Monitoring: Vital signs and clinical assessment, continuous EKG monitoring, Pulse oximetry, Carbon Dioxide monitoring and blood pressure monitoring were done throughout the procedure. Procedure: The patient was placed in the left lateral decubitis position and pre-procedure medications were administered and a bite block was placed. The endoscope was inserted into the mouth and advanced under direct vision to the third part of duodenum. A careful inspection was made as the upper endoscope was withdrawn including a retroflexed examination of the proximal stomach; Findings and interventions are described below. Findings: Larynx:normal Esophagus: GE junction at 40 cm, diaphragm hiatus at 40 cm, mild erythema and bogginess at GEJ, bx taken as well as from distal and proximal esophagus --balloon dilation done to 19 mm at LES and UES-no tears seen. Inlet patch seen at proximal esophagus. Stomach: Mild erythema. Biopsies were obtained. Grade 2 flap valve on retroflexed examination of the cardia. Duodenum: Normal bulb and descending duodenum, bx taken Intervention: Biopsies as noted above, balloon dilation COLONOSCOPY Instrument: Olympus variable stiffness pediatric scope 190L Colonoscopy Monitoring: Vital signs and clinical assessment, continuous EKG monitoring, Pulse oximetry, Carbon Dioxide monitoring and blood pressure monitoring were done throughout the procedure. Colon withdrawal time was [] minutes. Procedure: The patient was placed in the left lateral decubitis position and pre-procedure medications were administered. After a digital rectal examination of the ano-rectum, the video colonoscope was inserted into the rectum and advanced through the colon to the cecum/TI. The colonoscope was slowly withdrawn in a retrograde panoramic fashion and the colon mucosa was carefully examined including a retroflexed view of the rectum. Findings and interventions are described below. Procedure Difficulty: easy Findings: Terminal Ileum-mild erythema, bx taken Random bx taken from left and right colon Cecum: 12-14 mm flat polyp noted -lateral granular spreading type, lifted with ERBE jet then removed en bloc with hot snare, with APC to edges. Ascending Colon: 10-11 mm sessile polyps removed with cold snare Transverse Colon -normal Descending Colon:normal Sigmoid Colon: diverticulosis noted, mild, 7-8 mm sessile polyp removed with cold snare Rectum: Retroflexion with small internal hemorrhoids, grade I Anorectum - normal Colon preparation: [place] Bowel Preparation Scale Right colon; 2 Transverse colon: 2 Left colon; 2 (0 = Unprepared colon segment with mucosa not seen due to solid stool that cannot be cleared. 1 = Portion of mucosa of the colon segment seen, but other areas of the colon segment not well seen due to staining, residual stool and/or opaque liquid. 2 = Minor amount of residual staining, small fragments of stool and/or opaque liquid, but mucosa of colon segment seen well. 3 = Entire mucosa of colon segment seen well with no residual staining, small fragments of stool or opaque liquid) Impression and Post Procedure Diagnosis: Endoscopy Findings: inlet patch gastritis esophagitis Colonoscopy Findings: polyps internal hemorrhoids diverticular disease mild ileitis Plan: Await Pathology results Repeat Colonoscopy in 1-2 years or earlier if clinically indicated High fiber diet leaflet avoid straining at stool, epsom salts and sitz bath, anusol supps or cream can consider treating inlet patch with APC if ongoing dysphagia or globus type sensation Above findings were reviewed with the patient and relevant handouts were provided if indicated.
[2022-09-26 14:15] VITALS: BP 107/58; PULSE 80; RESP 18; TEMP 36.1; O2SAT 100
[2022-09-26 14:30] VITALS: BP 114/82; PULSE 86; RESP 16; TEMP 36.1; O2SAT 100
== END 2022-09-26 15:10 | disposition home or self-care (01) ==
PROVIDERS: PCP Pediatrics; Visit Provider Internal Medicine Gastroenterology
PROC: (CPT 45385; principal; 2022-09-26 12:20)
DX: Z12.11 Encounter for screening for malignant neoplasm of colon (principal); R19.4 Change in bowel habit; D12.0 Benign neoplasm of cecum; D12.2 Benign neoplasm of ascending colon; D12.5 Benign neoplasm of sigmoid colon; K57.30 Diverticulosis of large intestine without perforation or abscess without bleeding; K64.0 First degree hemorrhoids; K52.9 Noninfective gastroenteritis and colitis, unspecified; R13.10 Dysphagia, unspecified; K29.50 Unspecified chronic gastritis without bleeding; K20.80 Other esophagitis without bleeding; K44.9 Diaphragmatic hernia without obstruction or gangrene; Q39.8 Other congenital malformations of esophagus
CPT/HCPCS: 45385; 45380; 45381; 43249; 43239; 81025; 88305; 88313; 88341; 88342; C1726; J2250

== ENCOUNTER 2022-10-27 09:38 | Outpatient (REF) | payer MEDICAID, SELFPAY ==
--- NOTE | ~2022-10-27 | MR_ITS ---
EXAMINATION: MR ABDOMEN AND PELVIS WITHOUT AND WITH CONTRAST CLINICAL INFORMATION: Crohn's disease of the small intestine without complications COMPARISON: CT abdomen pelvis 01/28/2022 TECHNIQUE: MRI of the abdomen and pelvis before and after the IV administration of 10 mL of Gadavist was obtained using routine sequences. FINDINGS: LUNG BASES: The visualized lung bases are unremarkable. KIDNEYS: Unremarkable. GALLBLADDER: Unremarkable. LIVER AND BILIARY TREE: The dome of the liver was excluded from the [id number] on this MR abdomen targeted to evaluate the bowel. Subcentimeter hepatic cyst. Loss of signal on opposed phase imaging compatible with hepatic steatosis. PANCREAS: Unremarkable SPLEEN: Unremarkable ADRENAL GLANDS: Unremarkable GASTROINTESTINAL TRACT: Stomach is well distended without wall thickening, hyperenhancement or ulceration. Large and small bowel are nondilated without evidence of bowel obstruction. No large or small bowel wall thickening or hyperenhancement. No findings to suggest stricture, fistula or abscess. No perianal inflammatory changes appreciated within the limitations of the exam. LYMPH NODES: No lymphadenopathy. VASCULAR: Unremarkable ABDOMINAL WALL: Unremarkable. REPRODUCTIVE ORGANS: 3 cm simple dominant right ovarian follicle, no follow-up imaging recommended. A 2.5 cm T2 hypointense homogeneously enhancing exophytic myoma off the uterine fundus. BLADDER: Unremarkable PELVIC FREE FLUID: No free fluid or ascites. OSSEOUS STRUCTURES: Unremarkable. MR/MR pelvis wo/w con IMPRESSION: No findings to suggest active inflammatory bowel disease. A 2.5 cm exophytic fundal uterine myoma. Hepatic steatosis.
--- NOTE | ~2022-10-27 | MR_ITS ---
EXAMINATION: MR ABDOMEN AND PELVIS WITHOUT AND WITH CONTRAST CLINICAL INFORMATION: Crohn's disease of the small intestine without complications COMPARISON: CT abdomen pelvis 01/28/2022 TECHNIQUE: MRI of the abdomen and pelvis before and after the IV administration of 10 mL of Gadavist was obtained using routine sequences. FINDINGS: LUNG BASES: The visualized lung bases are unremarkable. KIDNEYS: Unremarkable. GALLBLADDER: Unremarkable. LIVER AND BILIARY TREE: The dome of the liver was excluded from the [id number] on this MR abdomen targeted to evaluate the bowel. Subcentimeter hepatic cyst. Loss of signal on opposed phase imaging compatible with hepatic steatosis. PANCREAS: Unremarkable SPLEEN: Unremarkable ADRENAL GLANDS: Unremarkable GASTROINTESTINAL TRACT: Stomach is well distended without wall thickening, hyperenhancement or ulceration. Large and small bowel are nondilated without evidence of bowel obstruction. No large or small bowel wall thickening or hyperenhancement. No findings to suggest stricture, fistula or abscess. No perianal inflammatory changes appreciated within the limitations of the exam. LYMPH NODES: No lymphadenopathy. VASCULAR: Unremarkable ABDOMINAL WALL: Unremarkable. REPRODUCTIVE ORGANS: 3 cm simple dominant right ovarian follicle, no follow-up imaging recommended. A 2.5 cm T2 hypointense homogeneously enhancing exophytic myoma off the uterine fundus. BLADDER: Unremarkable PELVIC FREE FLUID: No free fluid or ascites. OSSEOUS STRUCTURES: Unremarkable. MR/MR abdomen wo/w con IMPRESSION: No findings to suggest active inflammatory bowel disease. A 2.5 cm exophytic fundal uterine myoma. Hepatic steatosis.
== END 2022-10-27 09:39 | disposition home or self-care (01) ==
LOC: HO.MRI 09:38
PROVIDERS: Visit Provider Internal Medicine Gastroenterology
DX: K50.00 Crohn's disease of small intestine without complications (principal)
CPT/HCPCS: 72197; 74183; A9585

== ENCOUNTER → 2022-11-27 13:02 | Outpatient (BNVA) | payer MEDICAID, SELFPAY | PROVIDERS: PCP Pediatrics; Visit Provider Internal Medicine Gastroenterology | DX: K50.00 Crohn's disease of small intestine without complications (principal); M35.3 Polymyalgia rheumatica | CPT/HCPCS: 99212 ==

== ENCOUNTER 2022-11-29 12:09 | Outpatient (REF) | payer MEDICAID, SELFPAY ==
[2022-11-29 12:41] LABS: MANUAL DIFF FLAG NO
[2022-11-29 14:12] LABS: Basophils Percent Auto 0.6 % (0-2); Eosinophils Absolute Auto 0.1 X10*3/uL (0.0-0.4); Hematocrit 43.6 % (37.0-47.0); Hemoglobin 14.1 g/dl (12.0-16.0); Imm Gran Abs Auto 0.03 X10*3/uL (0.00-0.03); Imm Gran Pct Auto 0.4 % (0.0-0.4); Lymphocytes Percent Auto 27.8 % (20-40); Mean Corpuscular HGB Conc 32.3 g/dl (31.0-35.0); Mean Corpuscular Hemoglobin 30.3 pg (27.0-33.0); Mean Corpuscular Volume 93.8 fL (80.0-98.0); Mean Platelet Volume 10.2 fL (9.4-12.3); Monocytes Absolute Auto 0.5 X10*3/uL (0.1-1.2); Monocytes Percent Auto 6.7 % (2-11); Neutrophils Absolute Auto 4.6 x10*3/uL (2.0-8.3); Neutrophils Percent Auto 63.5 % (45-73); Platelet Count 274 X10*3/uL (160-400); Red Blood Count 4.65 X10*6/uL (4.20-5.50); Red Cell Distribution Width 12.3 % (11.0-16.0); White Blood Count 7.3 X10*3/uL (4.8-10.8)
[2022-11-29 14:40] LABS: Alanine Aminotransferase 21 U/L (0-31); Albumin Level 4.7 g/dL (3.5-5.0); Alkaline Phosphatase 57 U/L (39-117); Anion Gap 13 (12-20); Aspartate Amino Transferase 14 U/L (5-31); Bilirubin Total 1.3 mg/dL (0.0-1.0); Blood Urea Nitrogen 21 mg/dL (9-16); Calcium 9.4 mg/dL (8.4-10.2); Carbon Dioxide 27 mmol/L (22-29); Chloride 103 mmol/L (96-108); Estimated Glomerular Filt Rate > 60; Glucose Random 81 mg/dL (60-115); Potassium 4.4 mmol/L (3.3-5.1); Rheumatoid Factor < 13.0 IU/mL (<15.0); Sodium 139 mmol/L (135-145); Total Protein 7.5 g/dL (6.5-8.0)
[2022-11-29 15:03] LABS: Erythrocyte Sedimentation Rate 5 MM/HR (0-20)
[2022-12-01 14:24] LABS: Cyclic Citrullinated Peptide <16 UNITS
[2022-12-02 16:38] LABS: Complement C3 154 mg/dL (83-193)
[2022-12-04 05:34] LABS: Aldolase 4.6 U/L (<=8.1)
[2022-12-06 12:34] LABS: Anti Nuclear Antibody Screen POSITIVE (NEGATIVE)
== END 2022-11-29 12:10 | disposition home or self-care (01) ==
LOC: HO.LAB 12:09
PROVIDERS: PCP Pediatrics; Visit Provider Internal Medicine Gastroenterology
DX: K50.00 Crohn's disease of small intestine without complications (principal); M35.3 Polymyalgia rheumatica; R79.82 Elevated C-reactive protein (CRP); K75.81 Nonalcoholic steatohepatitis (NASH)
CPT/HCPCS: 36415; 80053; 82085; 82550; 85025; 85652; 86038; 86039; 86140; 86160; 86200; 86431

== ENCOUNTER → 2022-12-21 08:30 | Outpatient (REF) | payer MEDICAID, SELFPAY ==
--- NOTE | ~2022-12-21 | NM_ITS ---
EXAMINATION: RADIONUCLIDE SOLID FOOD GASTRIC EMPTYING 4-HOUR STUDY CLINICAL INFORMATION: Early satiety. COMPARISON: No previous gastric emptying study is available for comparison. TECHNIQUE: A standard meal consisting of 4 oz of Egg Beaters brand equivalent tagged with 700 microcuries Tc-99m Sulfur Colloid, 8 oz water and 2 slices of toast with jelly was administered orally to the patient. Images were obtained using a dual head gamma camera in the anterior and posterior projections over of the stomach immediately post ingestion and at hourly intervals up to 4 hours post ingestion. The anterior and posterior counts at each time interval were averaged using the geometric mean and expressed as percentage of the immediate post ingestion counts. FINDINGS: There is good visualization of activity in the stomach immediately post ingestion. As the study progresses, there is good clearance of activity from the stomach and visualization of progressively increasing small bowel activity. By the end of the study, there is almost no retention noted in the stomach. Retention in the stomach at each time interval was: 1 hour 85% (normal 37%-90%) 2 hours 66% (normal 30%-60%) 3 hours 42% 4 hours 10% (normal 0%-10%) NM/NM gastric emptying study IMPRESSION: Normal 4-hour solid food gastric emptying study.
== END ==
LOC: HO.NUCMED 08:30
PROVIDERS: Visit Provider Internal Medicine Gastroenterology
DX: R68.81 Early satiety (principal)
CPT/HCPCS: 78264; A9541

== ENCOUNTER 2023-04-11 08:24 | Outpatient (AMB) | payer OTHER, SELFPAY ==
--- NOTE | 2023-04-11 08:28 | A.OFFVIS_ITS ---
Intake Vital Signs 04/11/23 08:29 Height 5 ft 7 in Weight 173 lb 11.588 oz BMI 27.2 BP 104/62 Blood Pressure Location Rt brachial Position Sitting Pulse 87 Pulse Source Pulse Oximeter Temp 98.1 F Pulse Oximetry (%) 99 Intake Visit Reasons: Polymyalgia rheumatica Intake Note: * New pt presents today for abnormal lab consult. * C/o hair loss, unexplainable pain, headaches * States she's been feeling pretty rough for a while Passenger Service Manager Required: No Accompanied by: Self / Same As Patient Allergies blackberry [BLACKBERRY] Allergy (Unknown, Verified 04/11/23 08:32) THROAT CLOSES raspberry [RASPBERRY] Allergy (Unknown, Verified 04/11/23 08:32) THROAT CLOSES Medication List - Last Reconciled 04/11/23 by Micheal Phipps MD albuterol sulfate 90 mcg/actuation (Proventil HFA) 0 mcg inhalation Q4-6H PRN ibuprofen 600 mg PO Q8H PRN HPI HPI Comments History of Present Illness Details This is a 32-year-old female who is referred for evaluation of a positive MADISON. Over the last 1-2 years patient has been having multiple symptoms including neck and upper back tension as well as daily headaches that vary in severity. She also has GI upset, heartburn. She was evaluated by GI on found to have polyps as well as GERD. In regard symptoms improved with PPI. She states that she was evaluated by neurologist by [employer] recently and was told that her headaches are likely due to spasm and a muscle relaxant was prescribed which also did not provide much help. States that her mother has inflammatory bowel disease. Patient has difficulty falling and staying asleep. She is unaware of any history of DVT/PE. Over the last year patient states that her fingers change color to white in the cold, never change to blue or purple. Sometimes patient put her hands under warm water to reverse the color to normal. Denies any skin rashes. Denies any swollen joints. Denies stiffness. 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 Female Reproductive History Menstrual Total pregnancies: 2 Ab spontaneous: 2 Review of Systems Const Reports fatigue and Reports headache(s) ENT Reports headache(s) and Reports neck pain Card Reports irregular heart rhythm Musc Denies joint swelling and Reports neck pain Skin/Breast Denies rash Neuro Reports headache(s) Psych Reports anxiety Endo Reports fatigue Physical Exam Vital Signs: Last Vital Signs Temp 98.1 F 04/11/23 08:29 Pulse 87 04/11/23 08:29 BP 104/62 04/11/23 08:29 Pulse Ox 99 04/11/23 08:29 BMI result Body Mass Index 27.2 Const General: cooperative, healthy appearing and comfortable Nutritional Appearance: overweight Orientation/consciousness: patient oriented x3 Limitations: no limitations HEENT Head: Yes normocephalic and Yes atraumatic Neck Other: Reduced neck rotation bilaterally Neck: Yes no lymphadenopathy Resp Effort & Inspection: normal respiratory effort and able to speak in complete sentences Auscultation: clear to auscultation bilaterally Cardio Rate: regular rate GI Inspection: No distended Palpation (GI): Soft to palpation and nontender Skin General skin exam: no rashes or lesions noted Neuro General: patient oriented x3 Extrem Other: No active synovitis. No swollen or tender joints Assessment & Plan Assessment & Plan (1) MADISON positive: Code(s): R76.8 - Other specified abnormal immunological findings in serum Plan: This is a 32-year-old female who was referred for evaluation of a positive MADISON 1-320 in a DFS pattern. I do not see any signs of autoimmune rheumatic disease upon my evaluation. She has some symptoms that are consistent with fibromyalgia. Discussed the nature of fibromyalgia with patient. However the chronic neck pain, spasm and headaches need to be addressed by Neurology (2) Chronic headaches: Code(s): R51.9 - Headache, unspecified; G89.29 - Other chronic pain Plan: Chronic neck spasms and almost daily headaches. Referred patient to neurology (3) Raynaud's phenomenon: Code(s): I73.00 - Raynaud's syndrome without gangrene Qualifiers: Raynaud?s-associated gangrene presence: without gangrene Qualified Code(s): I73.00 - Raynaud's syndrome without gangrene Plan: Symptoms consistent with primary Raynaud's. Discussed conservative measures for Raynaud's. Advised patient to come back to clinic if her Raynaud symptoms become worse Orders: Referrals Neurology Referral G89.29 - Other chronic pain, R51.9 - Headache, unspecified Coding Level of Care Code New Pt Level 3 (41766) Diagnoses MADISON positive R76.8 Chronic headaches R51.9; G89.29 Raynaud's phenomenon I73.00 Raynaud?s-associated gangrene presence: without gangrene
[2023-04-11 08:29] VITALS: BP 104/62; PULSE 87; TEMP 36.7; O2SAT 99; BMI 27.2
== END 2023-04-11 09:01 | disposition home or self-care (01) ==
PROVIDERS: PCP Pediatrics; Visit Provider Student in an Organized Health Care Education/Training Program
DX: R76.8 Other specified abnormal immunological findings in serum (principal); R51.9 Headache, unspecified; G89.29 Other chronic pain; I73.00 Raynaud's syndrome without gangrene
CPT/HCPCS: 99203

== ENCOUNTER → 2023-04-11 08:24 | Outpatient (BNVA) | payer OTHER, SELFPAY | PROVIDERS: PCP Pediatrics; Visit Provider Student in an Organized Health Care Education/Training Program | DX: I73.00 Raynaud's syndrome without gangrene (principal); R76.8 Other specified abnormal immunological findings in serum; R51.9 Headache, unspecified; G89.29 Other chronic pain | CPT/HCPCS: 99202 ==

== ENCOUNTER 2023-07-23 13:25 | Outpatient (AMB) | payer OTHER, SELFPAY ==
[2023-07-23 13:34] VITALS: BP 98/72; PULSE 90; O2SAT 100; BMI 27.4
--- NOTE | 2023-07-23 13:34 | MHC.OFFVIS ---
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 Patient states I've had headaches my wholke life but in the last years theyb have been very vad alot of pressure pressure in right eye, I'm seeing ENT for all these things. Allergies blackberry [BLACKBERRY] Allergy (Unknown, Verified 07/23/23 13:37) THROAT CLOSES raspberry [RASPBERRY] Allergy (Unknown, Verified 07/23/23 13:37) THROAT CLOSES Medication List - Last Reconciled 07/23/23 by JUDITH Mcconnell albuterol sulfate 90 mcg/actuation (Proventil HFA) 0 mcg inhalation Q4-6H PRN ibuprofen 600 mg PO Q8H PRN HPI HPI Comments History of Present Illness Details Right-handed 33-yr-old female presents for new pt evaluation of headache disorder. Pt has had headaches since late teens to stacie 20s. Over the years she has had mild headaches and migraine. In the last year or so she has developed a constant pressure type headache and a seperate intermittent right-sided stabbing headache. Headache questionnaire: Preceding causes? None Previous work-up? 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 This is a/w watery eye. The pain is severe- stops her in her tracks. Has had 1-2 attacks per day. This occurs a couple of times per week. No known triggers. No know interventions which help. Typical pressure headache characteristics: Prodrome symptoms? unsure Aura? Occassionally may see peripheral flashes of light (either side)- during the headache Location, quality, characteristics? Holocranial- mostly top of head and occipital regions. Pressure. Pain intensity? 5/10 Associated symptoms? Photophobia, a bit more photophobic, occasionally nausea if dizziness, brain fog at times. Focal weakness, Parethesias, Autonomic s/s? red and watery. Postdrome? unsure Triggers? exercise makes the headache Any positional, valsalva, exertional, sexual activity triggers? physical activity Menstrual triggers? none Time of day? no specific time of day Duration and Frequency? near constant for about a year How does headache impact your life? Tries to push through the headache. Current acute medication use/interventions: None Previous acute medication use: Ibuprofen - not very effective. Cyclobenzaprine- ineffective. Current preventative medication use: None Previous preventative medication use: Amitriptyline- did not tolerate. Non-pharmacological interventions: Heat- maybe helps. History of musculoskeletal disorders or injury? Has neck tightness- massage can help sometimes. Recent positive MADISON- ? fibromyalgia. History of concussion/head injury? Has hda 2 concussions- age 15 and age 30. History of mood disorder? h/o depression History of sleep disorder? Sleeping ok now. In the past barely slept- but now adheres to a good sleep hygiene regimen. History of respiratory disease? none History of CV disease? No HTN/HLD. Has Raynoud's. History of coagulopathy? None History of endocrine or metabolic disease? None History of seizure? None History of GI disorder? Occasional constipation. Family planning? Not at this time Family history of migraine or other headache disorder? 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 Head: Yes normocephalic Resp Effort & Inspection: normal respiratory effort and able to speak in complete sentences Back/Spine/Pelvis Other: Mild forward head posture Shoulder slightly stooped forward Bilateral posterior cervical tightness. Cervical ROM: full Left Spurling: normal Right Spurling: normal. Neuro General: patient oriented x3 Cranial nerves: Yes CN's II-XII intact bilaterally Cognition (Neuro): normal cognition Gait exam (Neuro): Normal gait present Motor exam (neuro): 5/5 motor strength present throughout Deep tendon reflexes (DTR's): Right triceps reflex intensity grade: 2+, Left triceps reflex intensity grade: 2+, Rt Biceps (C5, C6): 2+, Left biceps reflex intensity grade: 2+, Right brachioradialis reflex intensity grade: 2+, Left brachioradialis reflex intensity grade: 2+, Right patellar reflex intensity grade: 2+ and Left patellar reflex intensity grade: 2+ Coordination: [id number] test normal, tandem gait normal and Romberg test negative Pupils: Normal pupillary reactivity/response: bilateral Psych Appearance: grossly normal Mental Status: mental status grossly normal Speech and movement: Normal speech and movement present Affect: normal affect Attitude: cooperative Thought process: Normal thought process present Assessment & Plan Assessment & Plan (1) Chronic migraine without aura: Comment: ? cervicogenic component Code(s): G43.709 - Chronic migraine without aura, not intractable, without status migrainosus (2) Headache, trigeminal autonomic: Comment: Right sided stabbing headache x's 20 seconds, a/w right eye watery eye. Code(s): G44.099 - Other trigeminal autonomic cephalgias (TAC), not intractable (3) Posture abnormality: Code(s): R29.3 - Abnormal posture (4) Cervicalgia: Code(s): M54.2 - Cervicalgia (5) Cyst of pineal gland: Code(s): E34.8 - Other specified endocrine disorders Plan Pt advised to undergo brain MRI w/wo to assess for secondary etiologies of right sided side-locked stabbing headache w/ autonomic symptoms and to assess status of pineal cyst. PT eval & tx. For overall headache management: Discussed importance of good self-care, including but not limited to maintaining a healthy diet, adequate fluid intake, adequate sleep, and engaging in regular physical activity. Track headaches. For acute migraine headache treatment: Discussed importance of taking acute medications at the first sign of headache, however stressed importance of avoiding acute medication overuse (especially with combined headache medications). Trial Sumatriptan 100mg tab, 1/2 - 1 tab (50-100mg) at onset of headache, may repeat in 2 hours. Max of 2 tabs (200mg) per 24 hours. May adjunct with OTC Tylenol 650mg q 4 hours, Ibuprofen 600mg q 6 hours, or Naproxen 440mg q 12 hrs prn. Reviewed potential adverse effects of triptans, including but not limited to nausea, fatigue, chest tightness/tingling (usually passes within a few minutes), medication overuse headaches. Previous acute migraine medication trials: Ibuprofen- ineffective, Cyclobenzaprine- ineffective Acute migraine medication contraindications: None at this time For headache prevention medication: Discussed that preventative medications should be taken routinely as prescribed for best effect, it may take several weeks for full effect to take effect. Start Riboflavin 400mg qam Start Magnesium 400mg qhs Previous migraine prevention medication trials: Amitriptyline- not tolerated. Migraine prevention medication contraindications: Aimovig d/t symptomatic Raynaud's. Future considerations: BB. Pt to follow-up in 3 months or sooner prn. Orders: Orders PT Evaluation and Treatment Today M35.3 - Polymyalgia rheumatica, M54.2 - Cervicalgia, R29.3 - Abnormal posture MR head/brain wo/w con Today E34.8 - Other specified endocrine disorders, G44.099 - Other trigeminal autonomic cephalgias (TAC), not intractable Medications: New riboflavin (vitamin B2) 400 mg PO DAILY 30 tabs 6RF 30 days magnesium oxide may hold for loose stools 400 mg PO BEDTIME 30 tabs 6RF 30 days sumatriptan succinate 50 - 100 mg orally at onset of headache, may repeat in 2 hrs PRN; max 2 tabs per day or 4 tabs/week (may take with Ibuprofen) 12 tabs 6RF migraine headache 30 days Coding Level of Care Code New Pt Level 4 (24614) Diagnoses Chronic migraine without aura G43.709 Headache, trigeminal autonomic G44.099 Posture abnormality R29.3 Cervicalgia M54.2 Cyst of pineal gland E34.8
== END 2023-07-23 14:30 | disposition home or self-care (01) ==
PROVIDERS: PCP Pediatrics; Visit Provider Nurse Practitioner Family
DX: G43.709 Chronic migraine without aura, not intractable, without status migrainosus (principal); G44.099 Other trigeminal autonomic cephalgias (TAC), not intractable; R29.3 Abnormal posture; M54.2 Cervicalgia; E34.8 Other specified endocrine disorders
CPT/HCPCS: 99204

== ENCOUNTER → 2023-07-23 13:25 | Outpatient (BNVA) | payer OTHER, SELFPAY | PROVIDERS: PCP Pediatrics; Visit Provider Nurse Practitioner Family | DX: G44.099 Other trigeminal autonomic cephalgias (TAC), not intractable (principal); G43.709 Chronic migraine without aura, not intractable, without status migrainosus; R29.3 Abnormal posture; M54.2 Cervicalgia; E34.8 Other specified endocrine disorders | CPT/HCPCS: 99202 ==

== ENCOUNTER 2023-09-13 13:07 | Outpatient (REF) | payer OTHER, SELFPAY ==
--- NOTE | ~2023-09-13 | MR_ITS ---
EXAMINATION: MR BRAIN WITH AND WITHOUT CONTRAST CLINICAL INFORMATION: Sharp pain right side of head lateral to eye, increased pressure sensation COMPARISON: CT head 11/24/2021 and MRI brain 12/21/2021 TECHNIQUE: MRI of the brain was obtained using routine sequences before and following administration of intravenous contrast. A total of 7.5 mL of Gadavist was administered intravenously. FINDINGS: No abnormal enhancement or mass along the intracranial and extracranial course of the trigeminal nerves. Normal fluid signal intensity of Meckel's caves. No evidence of neurovascular compression along the cisternal segments of the trigeminal nerves. Fat within the periorbital fissures, pterygopalatine fossa, trigeminal fat pad, and mandibular alveolar foramina is preserved. No acute infarct. The GRE sequence is without susceptibility artifact to suggest acute or chronic blood products. No extra-axial fluid collection. The ventricles and sulci are normal in size and configuration without significant volume loss or hydrocephalus. No parenchymal signal abnormality. No abnormal intraparenchymal or leptomeningeal enhancement. No significant mass effect or herniation pattern. Normal enhancement of the dural venous sinuses. Normal appearance of the intracranial arterial flow voids. 7 mm pineal gland cyst. The orbits are grossly unremarkable. Mild patchy paranasal sinus mucosal disease, increased along the anterior gomez of the sphenoid sinuses. Several proteinaceous retention cysts within the maxillary sinus alveolar recesses. No mastoid effusion. Normal marrow signal. Symmetric enlargement of the bilateral sublingual glands, partially herniated into the submandibular spaces the mylohyoid boutonniere defects. MR/MR head/brain wo/w con IMPRESSION: No findings to suggest neurovascular compression of the trigeminal nerves. Fat within the periorbital fissures, pterygopalatine fossa, trigeminal fat pad, and mandibular alveolar foramina is preserved. No other acute intracranial process or pathologic intracranial enhancement.
[2023-09-13] MEDS: gadobutroL 7.5 ML VIAL IVPUSH (13:54)
== END 2023-09-13 13:08 | disposition home or self-care (01) ==
LOC: HO.MRI 13:07
PROVIDERS: PCP Pediatrics; Visit Provider Nurse Practitioner Family
DX: G44.099 Other trigeminal autonomic cephalgias (TAC), not intractable (principal); E34.8 Other specified endocrine disorders
CPT/HCPCS: 70553; A9585

== ENCOUNTER 2024-06-11 08:36 | Outpatient (AMB) | payer OTHER, SELFPAY ==
[2024-06-11 08:44] VITALS: BP 116/88; PULSE 86; O2SAT 99; BMI 28.5
--- NOTE | 2024-06-11 08:44 | A.OFFVIS_ITS ---
Vital Signs 06/11/24 08:44 Height 5 ft 7 in Weight 182 lb 1.629 oz BMI 28.5 BP 116/88 Blood Pressure Location Rt brachial Position Sitting Pulse 86 Pulse Source Pulse Oximeter Pulse Oximetry (%) 99 Oxygen Delivery Method Room Air Intake Visit Reasons: Dr. Palacios pt. Recall colo (TA). New sx. Intake Note: Rashida presents in office today for a scheduled initial assessment. CC; Pt requires recall colo for TA diagnosis from Dr. Palacios previously. Pt also reports having new sx. Pt reports having abnormal bowel movements with associated melena over the course of the last 4 mos approximately. Pt also reports having associated fecal incontinence (leaking), as well as epigastric pain. Pt reports that the epigastric pain is fairly consistent and they rarely experience any break in sx. Pt also reports that the pain radiates through to the mid back / thoracic region. Pt reports that they have attempted treatment with omeprazole, and ibuprofen for pain; pt has not experienced any relief with either of these two medications. 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 Palacios pt. Recall colo (TA). New sx.: Details: COLONOSCOPY DR. PALACIOS 09/26/2022 Findings: Larynx:normal Esophagus: GE junction at 40 cm, diaphragm hiatus at 40 cm, mild erythema and bogginess at GEJ, bx taken as well as from distal and proximal esophagus --balloon dilation done to 19 mm at LES and UES-no tears seen. Inlet patch seen at proximal esophagus. Stomach: Mild erythema. Biopsies were obtained. Grade 2 flap valve on retroflexed examination of the cardia. Duodenum: Normal bulb and descending duodenum, bx taken Intervention: Biopsies as noted above, balloon dilation COLONOSCOPY Instrument: Olympus variable stiffness pediatric scope 190L Colonoscopy Monitoring: Vital signs and clinical assessment, continuous EKG monitoring, Pulse oximetry, Carbon Dioxide monitoring and blood pressure monitoring were done throughout the procedure. Colon withdrawal time was [] minutes. Procedure: The patient was placed in the left lateral decubitis position and pre-procedure medications were administered. After a digital rectal examination of the ano-rectum, the video colonoscope was inserted into the rectum and advanced through the colon to the cecum/TI. The colonoscope was slowly withdrawn in a retrograde panoramic fashion and the colon mucosa was carefully examined including a retroflexed view of the rectum. Findings and interventions are described below. Procedure Difficulty: easy Findings: Terminal Ileum-mild erythema, bx taken Random bx taken from left and right colon Cecum: 12-14 mm flat polyp noted -lateral granular spreading type, lifted with ERBE jet then removed en bloc with hot snare, with APC to edges. Ascending Colon: 10-11 mm sessile polyps removed with cold snare Transverse Colon -normal Descending Colon:normal Sigmoid Colon: diverticulosis noted, mild, 7-8 mm sessile polyp removed with cold snare Rectum: Retroflexion with small internal hemorrhoids, grade I Anorectum - normal Colon preparation: Austin Bowel Preparation Scale Right colon; 2 Transverse colon: 2 Left colon; 2 (0 = Unprepared colon segment with mucosa not seen due to solid stool that cannot be cleared. 1 = Portion of mucosa of the colon segment seen, but other areas of the colon segment not well seen due to staining, residual stool and/or opaque liquid. 2 = Minor amount of residual staining, small fragments of stool and/or opaque liquid, but mucosa of colon segment seen well. 3 = Entire mucosa of colon segment seen well with no residual staining, small fragments of stool or opaque liquid) Impression and Post Procedure Diagnosis: Endoscopy Findings: inlet patch gastritis esophagitis Colonoscopy Findings: polyps internal hemorrhoids diverticular disease mild ileitis Plan: Await Pathology results Repeat Colonoscopy in 1-2 years or earlier if clinically indicated High fiber diet leaflet avoid straining at stool, epsom salts and sitz bath, anusol supps or cream can consider treating inlet patch with APC if ongoing dysphagia or globus type sensation LAST VISIT WITH DR. PALACIOS 11/2022 Tests: Mesenteric US--nml MRe- steatosis, fibroid, no evidence of IBD EGD/Colonoscopy; sessile serrated polyps, esophagitis, gastritis, neg for amyloid, and IgG4 MADISON; pos 1:320 INTERIM: She has ongoing sx with throbbing sensation in her esophagus she has epigastric pain, sharp, she has nausea, infrequent vomiting pain can be worse with small amounts of food, she gets bloated and it hurts she has been having less diarrheal type stools, no blood increased fluid intake no apthous ulcers she has joint swelling, wrists, neck, stiff worse in the morning, better as day goes on no skin rashes she denies brain fog or hives she does get palpitations, saw organizational consultant in past, she had holter monitor she has postural dizziness she does sweat a lot she feels her breathing is heavier periods are normal her hands go white in the cold weather A/P: 1/ Non specific set of symptoms with raynauds, tachycardia, polyarthralgia, GI upset maybe consistent with CTD e.g SLE, RA, etc ddx: IBD, autoimmune enteritis, functional dyspepsia, POT syndrome, surya danlos PLAN: 1/ GES 2/ orthostatics 3/ check anti bodies, RF, CCP, etc 4/ consider egd with ablation of inlet patch if ongoing sx 5/ capsule endoscopy GASTRIC EMPTYING STUDY NOVEMBER OF 2022 Retention in the stomach at each time interval was: 1 hour 85% (normal 37%-90%) 2 hours 66% (normal 30%-60%) 3 hours 42% 4 hours 10% (normal 0%-10%) TODAY'S VISIT: Patient is here today for requested sooner visit. Previously patient was seen by Dr. Palacios SEE ABOVE report from colonoscopy, upper endoscopy as well as office visit. Gastric emptying study was normal. Patient continues to have epigastric pain. States that she is taking ibuprofen and omeprazole and has no relief whatsoever. Patient also reports that in the past 4 months she has been having rectal leakage as well as constipation. Patient reports that she is not able to control her bowels. Feels like no med what she eats her symptoms are very unpredictable. Patient reports abdominal bloating. Patient was supposed to return in September of 2023 for inlet patch ablation and for repeated colonoscopy. 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 Review of Systems Const Denies weight gain and Denies weight loss ENT Reports no additional complaints, Denies dysphagia and Denies odynophagia Card Reports no additional complaints Resp Reports no additional complaints GI Reports abdominal pain (Epigastric), Denies belching, Denies melena, Reports bloating, Reports constipation, Denies dysphagia, Denies excessive flatus, Denies dyspepsia, Denies heartburn, Reports diarrhea, Denies loose stools, Denies nausea, Denies odynophagia and Denies vomiting Reports no additional complaints Musc Reports no additional complaints Neuro Reports no additional complaints Psych Reports no additional complaints Endo Reports no additional complaints Physical Exam Vital Signs: Last Vital Signs Pulse 86 06/11/24 08:44 BP 116/88 06/11/24 08:44 Pulse Ox 99 06/11/24 08:44 Oxygen Delivery Method Room Air 06/11/24 08:44 BMI result Body Mass Index 28.5 Const General: healthy appearing, no acute distress and well developed Nutritional Appearance: well nourished Orientation/consciousness: patient oriented x3 Resp Effort & Inspection: normal respiratory effort, able to speak in complete sentences, no tracheal deviation and symmetric chest movement Auscultation: clear to auscultation bilaterally Cardio Rate: regular rate GI Inspection: Yes normal to inspection and No distended Palpation (GI): Soft to palpation, not firm, nontender and No hepatosplenomegaly present Auscultation: normal bowel sounds General: Yes no CVA tenderness Back/Spine/Pelvis Back: no CVA tenderness Skin General skin exam: elasticity normal, turgor normal and dry skin Neuro General: patient oriented x3 Psych Appearance: grossly normal Mental Status: mental status grossly normal Assessment & Plan Assessment & Plan (1) Abdominal pain: Code(s): R10.9 - Unspecified abdominal pain Category: Medical Qualifiers: Abdominal location: upper abdomen, unspecified Qualified Code(s): R10.10 - Upper abdominal pain, unspecified (2) Generalized postprandial abdominal pain: Code(s): R10.84 - Generalized abdominal pain Category: Medical (3) Dysphagia: Comment: Consulted with Dr. Palacios since initial visit. Code(s): R13.10 - Dysphagia, unspecified Category: Medical Qualifiers: Dysphagia type: pharyngoesophageal phase Qualified Code(s): R13.14 - Dysphagia, pharyngoesophageal phase (4) Postprandial epigastric pain: Code(s): R10.13 - Epigastric pain (5) Postprandial abdominal bloating: Code(s): R14.0 - Abdominal distension (gaseous) (6) Diarrhea: Code(s): R19.7 - Diarrhea, unspecified Qualifiers: Diarrhea type: functional diarrhea Qualified Code(s): K59.1 - Functional diarrhea Plan Patient will be sent to check and rule out celiac. Upper GI with barium swallow. CT enterography ordered. Family history of Crohn's. Will need to evaluate small-bowel. Patient will follow FODMAP diet. List of food recommended as well as list of food to avoid given to patient. Patient will be sent for upper endoscopy and colonoscopy. Patient will start to take fiber daily. Senokot in the evening to help her empty her bowels better. Patient will start taking famotidine twice a day. Follow-up in the office after the procedure. Will call patient with lab and scan results. Patient is agreeable to this plan and verbalizes understanding of instructions. She was given the opportunity to ask questions and all questions answered. Thank you for allowing me to participate in her care Orders: Orders Transglutaminase Ab IgG 06/11/24 R10.9 - Unspecified abdominal pain Transglutaminase IgA 06/11/24 R10.9 - Unspecified abdominal pain Lipase 06/11/24 R10.9 - Unspecified abdominal pain FL upper GI w Ba Swallow 06/11/24 R13.10 - Dysphagia, unspecified CT enterography 06/11/24 K50.00 - Crohn's disease of small intestine without complications, R10.9 - Unspecified abdominal pain TSH reflex Free T4 06/11/24 K59.00 - Constipation, unspecified Medications: New methylcellulose (laxative) (Citrucel) take it with full glass of water 500 mg PO DAILY 30 tabs 2RF K59.00 - Constipation, unspecified sennosides (Natural Senna Laxative) 17.2 mg (2 x 8.6 mg) PO BEDTIME 60 tabs 3RF constipation K59.00 - Constipation, unspecified famotidine (Pepcid) 20 mg PO BID 30 tabs 3RF K29.70 - Gastritis, unspecified, without bleeding bisacodyl (Dulcolax (bisacodyl)) take 4 tabs at noon the day before your colonoscopy 20 mg (4 x 5 mg) PO ONCE 4 tabs 0RF 1 day Z12.11 - Encounter for screening for malignant neoplasm of colon polyethylene glycol 3350 (Miralax) As directed by gastroenterology department at [facility] 238 grams PO ONCE 238 grams 0RF Z12.11 - Encounter for screening for malignant neop lasm of colon Coding Level of Care Code Est Pt Level 4 (80665) Diagnoses Pain of upper abdomen R10.10 Abdominal location: upper abdomen, unspecified Generalized postprandial abdominal pain R10.84 Pharyngoesophageal dysphagia R13.14 Dysphagia type: pharyngoesophageal phase Postprandial epigastric pain R10.13 Postprandial abdominal bloating R14.0 Functional diarrhea K59.1 Diarrhea type: functional diarrhea Time Spent (min) 40 Comment 25 minutes spent with patient and additional 15 minutes spent reviewing her records
== END 2024-06-11 09:38 | disposition home or self-care (01) ==
PROVIDERS: PCP Pediatrics; Visit Provider Nurse Practitioner Family
DX: R10.10 Upper abdominal pain, unspecified (principal); R10.84 Generalized abdominal pain; R13.14 Dysphagia, pharyngoesophageal phase; R10.13 Epigastric pain; R14.0 Abdominal distension (gaseous); K59.1 Functional diarrhea
CPT/HCPCS: 99214

== ENCOUNTER → 2024-06-11 08:36 | Outpatient (BNVA) | payer OTHER, SELFPAY | PROVIDERS: PCP Pediatrics; Visit Provider Nurse Practitioner Family | DX: R10.10 Upper abdominal pain, unspecified (principal); R10.84 Generalized abdominal pain; R13.14 Dysphagia, pharyngoesophageal phase; R10.13 Epigastric pain; R14.0 Abdominal distension (gaseous); K59.1 Functional diarrhea | CPT/HCPCS: 99212 ==

== ENCOUNTER 2024-07-17 08:41 | Outpatient (REF) | payer OTHER, SELFPAY ==
[2024-07-17 10:06] LABS: Blood Urea Nitrogen 12 mg/dL (9-16); Estimated Glomerular Filt Rate > 60; Lipase 20 U/L (8-78)
[2024-07-17 10:23] LABS: TSH reflex Free T4 1.93 uIU/mL (0.32-4.0)
[2024-07-18 20:13] LABS: Transglutaminase Ab IgG <1.0 U/mL; Transglutaminase IgA <1.0 U/mL
== END 2024-07-17 08:42 | disposition home or self-care (01) ==
LOC: HO.LAB 08:41
PROVIDERS: PCP Pediatrics; Visit Provider Nurse Practitioner Family
DX: R10.9 Unspecified abdominal pain (principal); R10.11 Right upper quadrant pain; K59.00 Constipation, unspecified
CPT/HCPCS: 36415; 82565; 83690; 84443; 84520; 86364

== ENCOUNTER 2024-07-24 08:06 | Outpatient (REF) | payer OTHER, SELFPAY ==
--- NOTE | ~2024-07-24 | CT_ITS ---
EXAMINATION: CT ENTEROGRAPHY ABDOMEN AND PELVIS WITH CONTRAST CLINICAL INFORMATION: Crohn's disease of small intestine without complications. COMPARISON: MRI abdomen/pelvis October 27, 2022 TECHNIQUE: Study performed with oral VoLumen (1350 mL) and 480 mL of water to distend the abdomen. The patient was injected with 85 mL Omnipaque 350 intravenous contrast which was administered without adverse effect. Coronal and sagittal reformatted images were obtained at the technologist's workstation. This CT examination was performed using dose optimization techniques as appropriate, variously including the following: *Automated exposure control *Adjustment of mA and/or kV according to patient size (this includes techniques or standardized protocols for targeted exams where dose is matched to indication/reason for exam; i.e. extremities or head) *Use of iterative reconstruction technique DLP: 492 mGy-cm FINDINGS: GASTROINTESTINAL FINDINGS: Stomach: Satisfactorily distended an unremarkable in appearance. Small intestine: Suboptimally distended. Wall thickening and mucosal hyperenhancement of the terminal ileum. Possible wall thickening of small bowel loops in the left mid abdomen though evaluation is limited by underdistention. No small bowel obstruction. Large intestine: Moderate fecal retention in the colon. No focal wall thickening. No perirectal changes demonstrated. Additional findings: Diffuse prominence of the vasa recta. Numerous subcentimeter mesenteric lymph nodes. No abdominal abscess or fistulous tract demonstrated. ABDOMINAL AND PELVIC CT FINDINGS: Liver, gallbladder, biliary tract: The liver is decreased in attenuation. No focal hepatic lesion. No biliary ductal dilatation. The gallbladder is unremarkable. Pancreas: Unremarkable. Spleen: Unremarkable. Adrenal glands and kidneys: Unremarkable. Ureters and bladder: Unremarkable. Lymphovascular structures: Normal caliber abdominal aorta. There are numerous subcentimeter mesenteric lymph nodes. Pelvic viscera: Possible 1.6 cm subserosal fibroid at the uterine fundus. Bones: No destructive bone lesions. Lung bases: No pleural or pericardial effusion. CT/CT enterography IMPRESSION: Mucosal hyperenhancement of the terminal ileum. Possible wall thickening of small bowel loops in the left mid abdomen. Diffuse prominence of the vasa recta and numerous subcentimeter mesenteric lymph nodes. The conglomeration of findings most likely represents inflammatory bowel disease with active involvement of the terminal ileum. Electronically signed by: Herberth Matute MD 07/24/2024 01:32 PM EDT
[2024-07-24] MEDS: iohexoL 350 MG/ML 100 ML INFUS..BTL IV (09:52)
== END 2024-07-24 08:07 | disposition home or self-care (01) ==
LOC: HO.CT 08:06
PROVIDERS: PCP Pediatrics; Visit Provider Nurse Practitioner Family
DX: K50.00 Crohn's disease of small intestine without complications (principal); R10.9 Unspecified abdominal pain
CPT/HCPCS: 74177; Q9967

== ENCOUNTER 2024-08-25 07:54 | Outpatient (REF) | payer OTHER, SELFPAY ==
--- NOTE | ~2024-08-25 | FL_ITS ---
EXAMINATION: XR FLUOROSCOPY UPPER GI WITH AIR CLINICAL INFORMATION: Dysphagia. Reflux. COMPARISON: None TECHNIQUE: Fluoroscopic air contrast upper GI examination was performed utilizing standard techniques with thin and thick barium and effervescent granules. Numerous spot images were obtained. FINDINGS: Lateral cine images of the oropharynx and hypopharynx demonstrate normal swallow mechanism with normal epiglottic inversion and soft palate elevation. No tracheal penetration, glottic or subglottic aspiration identified. No nasopharyngeal reflux present. Hypopharyngeal structures appear normal without evidence of mass or diverticulum. There was no significant cricopharyngeal achalasia. Dual and single contrast images of the esophagus demonstrate normal caliber, contour, and mucosal pattern. No evidence of stricture, mass, or ulcerations identified. Esophageal peristalsis is mildly disorganized. No evidence of hiatus hernia identified. Gastroesophageal reflux is seen up to the midesophagus. Dual contrast and single contrast images of the stomach demonstrated a normal contour. The areae gastricae have a thickened appearance, suggestive of gastritis. No masses or ulcerations are seen. Contrast freely passed into the gastric antrum and duodenal bulb without delay. Single and air-contrast images of the duodenal bulb demonstrate no abnormality. The duodenal sweep has a normal appearance, course, and mucosal fold appearance. The imaged proximal jejunum has a normal fold pattern and caliber. FLUOROSCOPY TIME: 3 minutes 40 seconds Number of Spot Images: 7 Number of Cine: 15 DOSE AREA PRODUCT: 2315 uGy-m2 (microgray-meter squared) FL/FL upper GI w Ba Swallow IMPRESSION: 1. Mildly disordered esophageal peristalsis. 2. Moderate gastroesophageal reflux. 3. Thickened appearance of the areae gastricae, suggestive of gastritis. This procedure was performed by Shankar Jj PA-C, and supervised by Dr. Cash Electronically signed by: Issa Cash MD 08/27/2024 03:36 PM [facility]
== END 2024-08-25 07:55 | disposition home or self-care (01) ==
LOC: HO.XRAY 07:54
PROVIDERS: PCP Pediatrics; Visit Provider Nurse Practitioner Family
DX: R13.10 Dysphagia, unspecified (principal)
CPT/HCPCS: 74240

== ENCOUNTER → 2024-08-25 07:54 | Outpatient (BNV) | payer OTHER, SELFPAY | PROVIDERS: PCP Pediatrics; Visit Provider Physician Assistant Surgical | DX: R13.10 Dysphagia, unspecified (principal) | CPT/HCPCS: 74246 ==

== ENCOUNTER 2024-11-06 07:17 | Day surgery (SDC) | payer OTHER, SELFPAY ==
[2024-11-04 15:08] VITALS: BMI 28.5
--- NOTE | 2024-11-05 12:20 | HO.ANESPROP2 ---
Documented by User: Oneida Parr NP 11/05/24 12:20 HPI - Anesthesia Eval Consult details Narrative: 34yo F for Upper Endoscopy and Colonoscopy PMFSH Active Problems Active Problems: All Active Problems Cyst of pineal gland (Acute) Cervicalgia (Acute) Posture abnormality (Acute) Headache, trigeminal autonomic (Acute) Chronic migraine without aura (Acute) Raynaud's phenomenon (Acute) Chronic headaches (Acute) MADISON positive (Acute) Polymyalgia (Acute) Regional enteritis of small bowel (Acute) Chest discomfort (Acute) Generalized postprandial abdominal pain (Acute) Dysphagia (Acute) Abdominal pain (Acute) Past Medical History Medical History Dysphagia Polymyalgia Raynauds phenomenon Migraines Family History Family History Maternal Grandfather Pancreatic cancer Maternal Aunt Breast cancer Mother Crohn's disease Ulcerative colitis Surgical History Surgical History Hx of colonoscopy History of surgery on wrist History of ankle surgery History of esophagogastroduodenoscopy (EGD) Social History Social History Alcohol intake: current Alcohol intake frequency: holidays/special occasions only Patient Tobacco Use Status: Never used Tobacco Use of substances other than those prescribed or required for medical reasons: Yes Substance Use Frequency: Occasionally Advance Directives: No Advance Directives Information Provided: Yes Current occupational status: employed 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 Meds Allergies Allergy/AdvReac Type Severity Reaction Status Date / Time blackberry [BLACKBERRY] Allergy Unknown THROAT Verified 06/11/24 08:45 CLOSES raspberry [RASPBERRY] Allergy Unknown THROAT Verified 06/11/24 08:45 CLOSES Home Medications ?Medication ?Instructions ?Recorded ?Confirmed ?Last Taken ?Type albuterol sulfate 90 mcg/actuation 2 puff inhalation Q4H PRN wheezing 11/04/24 11/04/24 Unknown History aerosol inhaler Exam Height,Weight and Vital Signs: Height 5 ft 7 in Weight 82.554 kg Assessment and Plan Assessment Anesthesia Assessment: Chart Reviewed Documented by User: Radha Roach MD 11/06/24 08:51 PMFSH Past Medical History Medical History Dysphagia Polymyalgia Raynauds phenomenon Migraines Family History Family History Maternal Grandfather Pancreatic cancer Maternal Aunt Breast cancer Mother Crohn's disease Ulcerative colitis Family history of problems with anesthesia: No Surgical History Surgical History Hx of colonoscopy History of surgery on wrist History of ankle surgery History of esophagogastroduodenoscopy (EGD) History of Problems with Anesthesia: No Social History Social History Alcohol intake: current Alcohol intake frequency: holidays/special occasions only Patient Tobacco Use Status: Never used Tobacco Use of substances other than those prescribed or required for medical reasons: Yes Substance Use Frequency: Occasionally Advance Directives: No Advance Directives Information Provided: Yes Current occupational status: employed 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 Meds Allergies Allergy/AdvReac Type Severity Reaction Status Date / Time blackberry [BLACKBERRY] Allergy Unknown THROAT Verified 06/11/24 08:45 CLOSES raspberry [RASPBERRY] Allergy Unknown THROAT Verified 06/11/24 08:45 CLOSES Home Medications ?Medication ?Instructions ?Recorded ?Confirmed ?Last Taken ?Type albuterol sulfate 90 mcg/actuation 2 puff inhalation Q4H PRN wheezing 11/04/24 11/04/24 Unknown History aerosol inhaler Exam Airway Mallampati Class: II TM Dist: >3cm Neck ROM: Full Heart: rrr Lungs: cta Assessment and Plan Assessment Anesthesia Assessment: Anesthesia Plan Discussed Final Anesthetic Review Family History of Problems with Anesthesia: No History of Problems with Anesthesia: No NPO: Yes ASA Class: III Final Preanesthetic Review: No Changes in Pt Med Stat, Meds/Allgs Chart Reviewed, Consent Obtained/Reviewed and Anes Risks/Benef Reviewed Patient Risk: Intermediate Procedure Risk: Intermediate Anesthetic Plan Anesthetic Plan: MAC: Disposition: Standard PACU
[2024-11-06 07:56] VITALS: BP 142/90; PULSE 87; RESP 20; TEMP 36.3; O2SAT 100; BMI 29.3
[2024-11-06 08:11] LABS: UPreg QC Valid YES; Urine Pregnancy NEGATIVE (NEGATIVE)
[2024-11-06] MEDS: Lactated Ringers 1,000 ML 100 ML IVCONT (08:20)
--- NOTE | 2024-11-06 08:54 | MHC.SHP ---
Pre-Procedural Eval Section A - 24 Hr Update-Section A only Date of Service: 11/06/24 Section B - Complete if H&P > 30 days Chief Complaint: abn bowel habits, rectal bleeding Details of Present Illness: mum- UC Relevant Family History (Specify if Yes): Yes Relevant Social History: None Present Medications: see Short Stay Collaborative assessment Medical History: Significant History (Dysphagia Polymyalgia Raynauds phenomenon Migraines) History of Previous Operations: Relevant previous surgery/procedure and date(s) ( Hx of colonoscopy History of surgery on wrist History of ankle surgery History of esophagogastroduodenoscopy (EGD)) Allergies: Allergies Allergy/AdvReac Type Severity Reaction Status Date / Time blackberry [BLACKBERRY] Allergy Unknown THROAT Verified 06/11/24 08:45 CLOSES raspberry [RASPBERRY] Allergy Unknown THROAT Verified 06/11/24 08:45 CLOSES Review of Systems Sugical H&P ROS: Negative: Constitution, Cardiovascular, Respiratory, Neurological, Psychiatric, Hem-Onc, Allergic/Immunologic, Gastrointestinal, Genitourinary, Musculoskeletal, Integumentary, Endocrine and Eyes/Ears/Nose/Throat Exam Surgical H&P Exam: Normal: HEENT, Normal: Heart, Normal: Lungs, Normal: Extremities, Normal: Abdomen, Normal: Skin and Normal: Neurological Plan Diagnosis/Plan: Unchanged I have reviewed the history and physical and performed a pertinent physical examination on my patient. No changes have occurred unless specified. Time Spent With Patient Time: Total time managing care of this patient today ____ minutes.
--- NOTE | 2024-11-06 09:34 | HO.OPN-COLON ---
Colonoscopy Operative Note Operative Note Date of Service: 11/06/24 Narrative: Operative Information Procedure Description: EGD, Colonoscopy Indication: abn bowel habit, possible crohns Anesthesia: MAC FLEXIBLE TRANSORAL UPPER GASTROINTESTINAL ENDOSCOPY AND COLONOSCOPY PROCEDURE NOTE UPPER ENDOSCOPY Consent: Indications for the procedure and potential complications of bleeding, perforation, reaction to medications and missed diagnosis were discussed with the patient and informed consent was obtained. Instrument: Olympus GIF H 190 J mid size upper endoscope Monitoring: Vital signs and clinical assessment, continuous EKG monitoring, Pulse oximetry, Carbon Dioxide monitoring and blood pressure monitoring were done throughout the procedure. Procedure: The patient was placed in the left lateral decubitis position and pre-procedure medications were administered and a bite block was placed. The endoscope was inserted into the mouth and advanced under direct vision to the third part of duodenum. A careful inspection was made as the upper endoscope was withdrawn including a retroflexed examination of the proximal stomach; Findings and interventions are described below. Findings: Larynx:normal Esophagus: GE junction at 40 cm, diaphragm hiatus at 40 cm, normal mucosa-random bx taken --small inlet patch noted Stomach: Normal mucosa. Biopsies were obtained. Grade 2 flap valve on retroflexed examination of the cardia. Duodenum: Normal bulb and descending duodenum, bx taken Intervention: Biopsies as noted above, COLONOSCOPY Instrument: Olympus variable stiffness pediatric scope 190L Colonoscopy Monitoring: Vital signs and clinical assessment, continuous EKG monitoring, Pulse oximetry, Carbon Dioxide monitoring and blood pressure monitoring were done throughout the procedure. Colon withdrawal time was 8 minutes. Procedure: The patient was placed in the left lateral decubitis position and pre-procedure medications were administered. After a digital rectal examination of the ano-rectum, the video colonoscope was inserted into the rectum and advanced through the colon to the cecum/TI. The colonoscope was slowly withdrawn in a retrograde panoramic fashion and the colon mucosa was carefully examined including a retroflexed view of the rectum. Findings and interventions are described below. Procedure Difficulty:moderate Findings: Terminal Ileum-normal, bx taken Colon bx taken from right, left and rectum Cecum:normal Ascending Colon: 10 mm flat polyp raised with eleview and removed with cold snare, few tics seen Transverse Colon -normal Descending Colon:normal Sigmoid Colon: mild diverticulosis Rectum: Retroflexion with small internal hemorrhoids, grade I Anorectum - normal Colon preparation: [place] Bowel Preparation Scale Right colon; 2 Transverse colon: 2 Left colon; 2 (0 = Unprepared colon segment with mucosa not seen due to solid stool that cannot be cleared. 1 = Portion of mucosa of the colon segment seen, but other areas of the colon segment not well seen due to staining, residual stool and/or opaque liquid. 2 = Minor amount of residual staining, small fragments of stool and/or opaque liquid, but mucosa of colon segment seen well. 3 = Entire mucosa of colon segment seen well with no residual staining, small fragments of stool or opaque liquid) Impression and Post Procedure Diagnosis: Endoscopy Findings: esophageal inlet patch Colonoscopy Findings: diverticulosis colon polyp internal hemorrhoids Plan: Await Pathology results Repeat Colonoscopy in 2-3 years due to flat polyp or earlier if clinically indicated High fiber diet leaflet avoid straining at stool, epsom salts and sitz bath, anusol supps or cream consider VCE if ongoing sx and bx negative Above findings were reviewed with the patient and relevant handouts were provided if indicated.
[2024-11-06 09:40] VITALS: BP 112/61; PULSE 81; RESP 16; TEMP 36.2; O2SAT 98
[2024-11-06 09:55] VITALS: BP 119/81; PULSE 74; RESP 17; TEMP 36.2; O2SAT 96
== END 2024-11-06 10:49 | disposition home or self-care (01) ==
PROVIDERS: Nurse Practitioner; PCP Pediatrics; Visit Provider Internal Medicine Gastroenterology
PROC: (CPT 45385; principal; 2024-11-06 09:20)
DX: R19.4 Change in bowel habit (principal); K62.5 Hemorrhage of anus and rectum; Z86.0101 Personal history of adenomatous and serrated colon polyps; D12.2 Benign neoplasm of ascending colon; K57.30 Diverticulosis of large intestine without perforation or abscess without bleeding; K64.0 First degree hemorrhoids; R10.10 Upper abdominal pain, unspecified; R13.14 Dysphagia, pharyngoesophageal phase; K22.2 Esophageal obstruction; K52.89 Other specified noninfective gastroenteritis and colitis; Q39.8 Other congenital malformations of esophagus; M35.3 Polymyalgia rheumatica; I73.00 Raynaud's syndrome without gangrene; G43.909 Migraine, unspecified, not intractable, without status migrainosus; K44.9 Diaphragmatic hernia without obstruction or gangrene
CPT/HCPCS: 45385; 45380; 45381; 43249; 43239; 81025; 88305; 88313; 88342; J2003; J2250; J2704

== ENCOUNTER → 2024-11-06 07:17 | Outpatient (BNV) | payer OTHER, SELFPAY | PROVIDERS: PCP Pediatrics; Visit Provider Internal Medicine Gastroenterology | DX: R19.4 Change in bowel habit (principal); D12.2 Benign neoplasm of ascending colon; K57.90 Diverticulosis of intestine, part unspecified, without perforation or abscess without bleeding; K64.0 First degree hemorrhoids; Q39.8 Other congenital malformations of esophagus | CPT/HCPCS: 43239; 45380; 45381; 45385 ==

== ENCOUNTER 2025-05-25 15:07 | Emergency (ER) | payer OTHER, SELFPAY ==
--- NOTE | ~2025-05-25 | CT_ITS ---
CLINICAL HISTORY: headache CT head without contrast Comparison: MR/REG/SR - MR BRAIN WITHOUT THEN WITH IV CONTRAST - 09/13/23 13:22 EST Findings: No acute hemorrhage. No extra-axial fluid collection. No hydrocephalus, mass-effect or herniation. Chavez-white differentiation is maintained. White matter is within normal limits for age. No acute orbital pathology. No acute soft tissue abnormality. No fracture. Mild mucosal thickening in the maxillary sinuses, also present on the prior study. The other visualized paranasal sinuses are predominantly clear. The mastoid air cells are clear. Impression: No acute intracranial findings. This document has been electronically signed by: Татьяна Graham MD on 05/25/2025 17:46:45
[2025-05-25 15:17] VITALS: BP 155/88; PULSE 92; RESP 20; TEMP 37; O2SAT 100; BMI 29.5
--- NOTE | 2025-05-25 15:28 | ED.GENADULT ---
HPI - General Adult General Chief complaint: Headache Stated complaint: headache, vomiting Time Seen by Provider: 05/25/25 17:21 Source: patient Mode of arrival: ambulatory Limitations: no limitations History of Present Illness ED Provider: Dr. Maritza Bae HPI narrative: Patient comes to the emergency room complaining of a migraine headache that started 4 days ago. Patient complaining of nausea, right-sided headache. Patient states that she has been taking [id number] migraine medications. Patient has never being prescribed medications specific for migraine headaches. Patient denies patient changes, chest pain or shortness of breath. Patient reported that she has been having a little bit of stiff neck but is able to move it without any pain or restriction in range of motion. Denies any recent URI symptoms or viral syndromes. Related Data Home Medications ?Medication ?Instructions ?Recorded ?Confirmed albuterol sulfate 90 mcg/actuation 2 puff inhalation Q4H PRN wheezing 11/04/24 11/04/24 aerosol inhaler Previous Rx's ?Medication ?Instructions ?Recorded famotidine 20 mg tablet (Pepcid) 20 mg PO BID #30 tabs 06/11/24 sennosides 8.6 mg tablet (Natural 17.2 mg (2 x 8.6 mg) PO BEDTIME 06/11/24 Senna Laxative) constipation #60 tabs pantoprazole 40 mg tablet,delayed 40 mg PO DAILY #30 tabs 08/27/24 release sumatriptan succinate 50 mg tablet See Rx Instructions PO .COMPLEX 05/25/25 #10 tabs Allergies Allergy/AdvReac Type Severity Reaction Status Date / Time blackberry (BLACKBERRY) Allergy Unknown THROAT Verified 05/25/25 15:17 CLOSES raspberry (RASPBERRY) Allergy Unknown THROAT Verified 05/25/25 15:17 CLOSES Review of Systems Review of Systems: Constitutional : No Weight loss, No Fever, No Chills, No Night Sweats, No Fatigue, No Malaise ENT/Mouth : No Hearing loss, No Ear Pain, No Nasal Congestion, No Sinus Pain, No Hoarseness, No sore throat, No Rhinorrhea, No Swallowing Difficulty Eyes: No Eye Pain, No Swelling, No Redness, No Foreign Body, No Discharge, No Vision Changes Cardiovascular : No Chest Pain, No SOB, No Dyspnea on Exertion, No Orthopnea, No Edema, No Palpitations Respiratory : No Cough, No Sputum, No Wheezing, No Smoke Exposure, No Dyspnea Gastrointestinal : No Nausea, No Vomiting, No Diarrhea, No Constipation, No abdominal Pain, No Hematochezia, No Melena Genitourinary : no irregular bleeding, No Dysuria, No Urinary Frequency, No Hematuria, No Urinary Incontinence, No Urgency, No Flank Pain, No Urinary Flow Changes, No Hesitancy Musculoskeletal : No joint pain, No Myalgias, No Joint Swelling Skin : No Skin Lesions, No rash Neuro : No Weakness, No Numbness, No Paresthesias, No Loss of Consciousness, No Dizziness, who migraine headache lasting 4 days affecting the right side Psych : No Anxiety/Panic, No Depression, No SI/HI/AH/VH, No Social Issues, Heme/Lymph: No Bruising, No Bleeding,No Lymphadenopathy Endocrine : No Polyuria, No Polydipsia, No Temperature Intolerance PMFSH Past Medical History Medical History Dysphagia Polymyalgia Raynauds phenomenon Migraines Surgical History Hx of colonoscopy History of surgery on wrist History of ankle surgery History of esophagogastroduodenoscopy (EGD) Family History Family History Maternal Grandfather Pancreatic cancer Maternal Aunt Breast cancer Mother Crohn's disease Ulcerative colitis Social History Social History Alcohol intake: current Alcohol intake frequency: holidays/special occasions only Patient Tobacco Use Status: Never used Tobacco Advance Directives: No Advance Directives Information Provided: No Current occupational status: employed 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 Oriented X3. No acute distress. Eyes: Pupils equal, round and reactive to light. No photophobia ENT: Pharynx normal. Neck: Normal inspection. Neck supple. No lymph nodes noted. No crepitus CVS: Normal heart rate and rhythm. Pulses normal. Normal S1 and S2 Respiratory: No respiratory distress. Breath sounds normal. No Wheezing. No rales Abdomen: Soft and nontender. No rigidity. No distention. Skin: Skin warm and dry. Normal skin color. Normal skin turgor. Extremities: No lower extremity edema. No Lacerations. No Rash Neuro: Oriented X 3. No motor deficit. No sensory deficit. Moving all extremities. No slurred speech. CN 2 through 12 grossly intact Psych: calm, cooperative, normal affect Vital Signs: Vital Signs - 24 hr 05/25/25 15:17 Temperature 98.6 F Pulse Rate 92 Respiratory Rate 20 Blood Pressure 155/88 H Pulse Oximetry 100 Oxygen Delivery Method Room Air BMI result Body Mass Index 29.5 Course Course Course Narrative: RME: 35 yold female presents to the ED for headache that improving with motrin and tyelnol. Patient denies any recent trauma. patinet states nausea and vomitting. labs head CT scan ordered Medications Administered Discontinued Medications Generic Name Dose Route Start Last Admin Trade Name Freq PRN Reason Stop Dose Admin Diphenhydramine HCl 25 mg 05/25/25 17:28 05/25/25 17:41 Diphenhydramine Hcl 50 Mg/Ml Vial IVPUSH 05/25/25 17:29 25 mg ONCE ONE Administration Sodium Chloride 1,000 mls @ 999 mls/hr 05/25/25 17:28 05/25/25 18:41 Ns IVCONT 05/25/25 18:28 Infused .Q1H1M ONE Infusion Ketorolac Tromethamine 30 mg 05/25/25 17:28 05/25/25 17:41 Ketorolac Tromethamine 30 Mg/Ml Vial IVPUSH 05/25/25 17:29 30 mg ONCE ONE Administration Metoclopramide HCl 10 mg 05/25/25 17:28 05/25/25 17:41 Metoclopramide Hcl 10 Mg/2 Ml Vial IVPUSH 05/25/25 17:29 10 mg ONCE ONE Administration Medical Decision Making Medical Decision Making [facility] Narrative: My interpretation of labs: No significant abnormality in patient's hematology and chemistry, hCG negative Head CT: No acute abnormality Patient is receiving IV fluids, IV Toradol, Reglan, Benadryl Patient states that she feels much better and ready for discharge. Differential Diagnosis Differential Diagnoses: The differential diagnosis associated with the presentation includes (Patient headache, migraine headache, intracranial abnormality) Admission/Observation Consideration of admission/observation: Escalation of care including admission/observation considered (Given patient's severity of symptoms in length, observation was considered) Lab Data [facility] Lab Attestation statement: I reviewed the patient's lab results. 05/25/25 16:15 05/25/25 16:15 Labs: Lab Results 05/25/25 Range/Units 16:15 WBC 5.4 (4.8-10.8) X10*3/uL RBC 4.64 (4.20-5.50) X10*6/uL Hgb 14.1 (12.0-16.0) g/dl Hct 41.5 (37.0-47.0) % MCV 89.4 (80.0-98.0) fL MCH 30.4 (27.0-33.0) pg MCHC 34.0 (31.0-35.0) g/dl RDW 12.2 (11.0-16.0) % Plt Count 307 (160-400) X10*3/uL MPV 9.4 (9.4-12.3) fL Immature Gran % (Auto) 0.2 (0.0-0.4) % Neut % (Auto) 55.1 (45-73) % Lymph % (Auto) 34.2 (20-40) % [place]undy % (Auto) 7.9 (2-11) % Eos % (Auto) 1.9 (0-4) % Baso % (Auto) 0.7 (0-2) % Lymph # (Auto) 1.8 (1.2-4.9) X10*3/uL [place]undy # (Auto) 0.4 (0.1-1.2) X10*3/uL Eos # (Auto) 0.1 (0.0-0.4) X10*3/uL Baso # (Auto) 0.0 (0.0-0.2) X10*3/uL Abs Immat Gran (auto) 0.01 (0.00-0.03) X10*3/uL Absolute Neuts (auto) 3.0 (2.0-8.3) x10*3/uL Absolute Nucleated RBC 0.000 (0.0-0.012) X10*3/uL Nucleated RBC % (auto) 0.0 (0.0-0.2) /100WBC Sodium 142 (135-145) mmol/L Potassium 4.3 (3.3-5.1) mmol/L Chloride 108 (96-108) mmol/L Carbon Dioxide 23 (22-29) mmol/L Anion Gap 15 (12-20) BUN 11 (9-16) mg/dL Creatinine 0.70 (0.5-1.4) mg/dL Estim Creat Clear Calc 119.4 Estimated GFR > 60 Random Glucose 95 (60-115) mg/dL Calcium 9.3 (8.4-10.2) mg/dL Total Bilirubin 1.1 H (0.0-1.0) mg/dL AST 20 (5-31) U/L ALT 30 (0-31) U/L Alkaline Phosphatase 59 (39-117) U/L Total Protein 7.4 (6.5-8.0) g/dL Albumin 4.7 (3.5-5.0) g/dL Beta HCG, Quant < 2 mIU/mL Independent Interpretation I performed an independent interpretation of an: CT Scan Radiology Impression Discussion of test interpretation with radiology: I have reviewed the radiologist's reading. Radiologist Impression: No acute hemorrhage. No extra-axial fluid collection. No hydrocephalus, mass-effect or herniation. Chavez-white differentiation is maintained. White matter is within normal limits for age. No acute orbital pathology. No acute soft tissue abnormality. No fracture. Mild mucosal thickening in the maxillary sinuses, also present on the prior study. The other visualized paranasal sinuses are predominantly clear. The mastoid air cells are clear. Impression: No acute intracranial findings. External Record Review External record reviewed: Outpatient record In 2022, we will patient went to see Neurology, patient had already reported headache disorder since her late teens or early 20s, affecting the right eye, with discomfort. Prescription Management I considered prescription management with: Pain Medication I considered prescribing Fioricet, however, patient requested a medication that does not contain caffeine Chronic Conditions Patient?s care impacted by: Other (Migraine headaches) Critical Care Time Critical Care Time Critical Care Time: Yes Total Critical Care Time: 35 Attestation: I have personally provided critical care time. Time includes review of lab data, radiology results, discussion with consultants, and monitoring for potential decompensation. Intervention performed as documented. Discharge Plan Discharge Clinical Impression: Headache, migraine Patient Disposition: Home, Self-Care Instructions: Migraine Headache (ED) Additional Instructions: Please follow-up with your primary care physician tomorrow. If you have any worsening or new symptoms, please return to the emergency room or call 911 Prescriptions: New sumatriptan succinate 50 mg tablet See Rx Instructions .ROUTE .COMPLEX Qty: 10 0RF Rx Instructions: take 1 tab at onset of headache; if no relief may repeat 1 tab after at least 2 hrs; max = 4 tabs/24 hr No Action pantoprazole 40 mg tablet,delayed release (DR/EC) 40 mg PO DAILY Qty: 30 2RF Rx Instructions: take one tablet half an hour before breakfast albuterol sulfate 90 mcg/actuation HFA aerosol inhaler 2 puff INHALATION Q4H PRN (Reason: wheezing) sennosides [Natural Senna Laxative] 8.6 mg tablet 17.2 mg PO BEDTIME Qty: 60 3RF famotidine [Pepcid] 20 mg tablet 20 mg PO BID Qty: 30 3RF Interventions: ED Discharge Assessment Last Done: 05/25/25 20:32 Discharge Date/Time: 05/25/25 20:32 Print Language: Korean
--- OUTSIDE RECORDS SUMMARY | 2025-05-25 16:14 | XMS_ITS | Clinical Summary ---
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 Not on evangelina e 01/19/2023 Are you concerned about learning? Not on file 01/19/2023 No 01/19/2023 No 01/19/2023 Digital Access Answer Date Recorded No 02/13/2023 No 02/13/2023 No 02/13/2023 Reliable internet access at home? Not on file 02/13/2023 Device with a working camera? Not on file Comments Unknown Sex and Gender Information Value Date Recorded Sex Assigned at Not on file Legal Sex Female 9:08 PM EDT Gender Identity Not on file Sexual Orientation Not on file Last Filed Vital Signs Vital Sign Reading Time Taken Comments Blood Pressure 118/70 02/08/2023 4:07 PM EDT Pulse 86 02/08/2023 4:07 PM EDT Temperature 36.7 C (98.1 F) 03/16/2015 3:30 AM EDT Respiratory Rate 16 03/16/2015 3:30 AM EDT Oxygen Saturation 98% 02/08/2023 4:07 PM EDT Inhaled Oxygen Concentration - - Weight 80.3 kg (177 lb) 02/08/2023 4:07 PM EDT Height 167.6 cm (5' 6 ) 02/08/2023 4:07 PM EDT Body Mass Index 28.57 02/08/2023 4:07 PM EDT Plan of Treatment Health Maintenance Due Date Last Done Comments DEPRESSION SCREENING 2000 HEPATITIS C SCREENING 2006 HIV ONE-TIME SCREENING (18-6 5 YEARS) 2006 PAP SMEAR 2009 SCREENING FOR DIABETES 2023 COVID-19 VACCINE (3 - 2023-2 5 season) 2024 03/24/2022, 04/23/2021 Adult Td,Tdap Booster 12/02/2028 12/02/2018 , 06/06/2007, 02/07/2000 HIB VACCINES Completed 01/21/1990 MENINGOCOCCAL VACCINES (ACWY) Aged Out , 05/21/2007 No longer eligible based on patient's age to complete this topic SMOKING STATUS SCREENING (On ce After 26 Yrs) Completed 02/08/2023 HEPATITIS A VACCINES Aged Out No long er eligible based on patient's age to complete this topic MENINGOCOCCAL VACCINES (B) Aged Out N o longer eligible based on patient's age to complete this topic PNEUMOCOCCAL VACCINES (0-49 years) Aged Out No longer eligible b ased on patient's age to complete this topic Medical Devices Not on file Insurance [facility] [employer] [facility] [employer] [place] [address] [place] [address] [employer] [address] [place] [address] [employer] [facility] [employer] [facility] [employer] Care Teams Reeling Machine Setup Operator Relationship Specialty Start Date End Date Bailee Melara DO [address] [place] [id number] PCP - General Pediatrics 01/01/23 Additional Source Comments The information contained in this document represents components of the legal health record. It is not the complete legal health record.[facility]
[2025-05-25 16:19] LABS: MANUAL DIFF FLAG NO
[2025-05-25 16:21] LABS: Hematocrit 41.5 % (37.0-47.0); Hemoglobin 14.1 g/dl (12.0-16.0); Imm Gran Abs Auto 0.01 X10*3/uL (0.00-0.03); Imm Gran Pct Auto 0.2 % (0.0-0.4); Lymphocytes Absolute Auto 1.8 X10*3/uL (1.2-4.9); Mean Corpuscular HGB Conc 34.0 g/dl (31.0-35.0); Mean Corpuscular Hemoglobin 30.4 pg (27.0-33.0); Mean Corpuscular Volume 89.4 fL (80.0-98.0); NRBC Abs Auto 0.000 X10*3/uL (0.0-0.012); NRBC Pct Auto 0.0 /100WBC (0.0-0.2); Platelet Count 307 X10*3/uL (160-400); Red Blood Count 4.64 X10*6/uL (4.20-5.50); White Blood Count 5.4 X10*3/uL (4.8-10.8)
[2025-05-25 16:37] LABS: Alanine Aminotransferase 30 U/L (0-31); Albumin Level 4.7 g/dL (3.5-5.0); Alkaline Phosphatase 59 U/L (39-117); Anion Gap 15 (12-20); Aspartate Amino Transferase 20 U/L (5-31); Blood Urea Nitrogen 11 mg/dL (9-16); Calcium 9.3 mg/dL (8.4-10.2); Carbon Dioxide 23 mmol/L (22-29); Chloride 108 mmol/L (96-108); Creatinine Clr Calc Pharmacy 119.4; Estimated Glomerular Filt Rate > 60; Potassium 4.3 mmol/L (3.3-5.1); Sodium 142 mmol/L (135-145); Total Protein 7.4 g/dL (6.5-8.0)
[2025-05-25 20:32] VITALS: BP 130/68; PULSE 95; RESP 16; TEMP 37; O2SAT 100
== END 2025-05-25 20:32 | disposition home or self-care (01) ==
PROVIDERS: Physician Assistant; Emergency Provider Emergency Medicine
DX: G43.909 Migraine, unspecified, not intractable, without status migrainosus (principal); R11.0 Nausea
CPT/HCPCS: 36415; 70450; 80053; 84702; 85025; 96361; 96374; 96375; 99283; 99284; J1200; J1885; J2765

== ENCOUNTER → 2025-05-25 15:27 | Outpatient (BNV) | payer OTHER, SELFPAY | PROVIDERS: Emergency Provider Emergency Medicine; Visit Provider Radiology Diagnostic Radiology | DX: R51.9 Headache, unspecified (principal) | CPT/HCPCS: 70450 ==

== ENCOUNTER 2025-06-03 08:22 | Outpatient (REF) | payer OTHER, SELFPAY ==
[2025-06-03 13:33] LABS: MANUAL DIFF FLAG NO
[2025-06-03 13:53] LABS: Hematocrit 42.2 % (37.0-47.0); Hemoglobin 13.8 g/dl (12.0-16.0); Imm Gran Abs Auto 0.02 X10*3/uL (0.00-0.03); Imm Gran Pct Auto 0.4 % (0.0-0.4); Lymphocytes Absolute Auto 1.6 X10*3/uL (1.2-4.9); Mean Corpuscular HGB Conc 32.7 g/dl (31.0-35.0); Mean Corpuscular Hemoglobin 30.1 pg (27.0-33.0); Mean Corpuscular Volume 92.1 fL (80.0-98.0); NRBC Abs Auto 0.000 X10*3/uL (0.0-0.012); NRBC Pct Auto 0.0 /100WBC (0.0-0.2); Platelet Count 299 X10*3/uL (160-400); Red Blood Count 4.58 X10*6/uL (4.20-5.50); White Blood Count 5.2 X10*3/uL (4.8-10.8)
[2025-06-03 14:05] LABS: Alanine Aminotransferase 37 U/L (0-31); Albumin Level 4.9 g/dL (3.5-5.0); Alkaline Phosphatase 54 U/L (39-117); Anion Gap 13 (12-20); Aspartate Amino Transferase 23 U/L (5-31); Blood Urea Nitrogen 12 mg/dL (9-16); Calcium 9.6 mg/dL (8.4-10.2); Carbon Dioxide 25 mmol/L (22-29); Chloride 109 mmol/L (96-108); Estimated Glomerular Filt Rate > 60; Potassium 4.4 mmol/L (3.3-5.1); Sodium 143 mmol/L (135-145); Total Protein 7.6 g/dL (6.5-8.0)
[2025-06-03 14:38] LABS: Folate 9.7 ng/mL (> or = 4.0); Vitamin B12 279 pg/mL (200-900)
[2025-06-09 11:08] LABS: Anti Nuclear Antibody Screen POSITIVE (NEGATIVE); Anti Nuclear Antibody Titer 1:640 titer
== END 2025-06-03 08:23 | disposition home or self-care (01) ==
LOC: HO.HKASLDS 08:22
PROVIDERS: Visit Provider Nurse Practitioner Family
DX: G44.031 Episodic paroxysmal hemicrania, intractable (principal); G44.099 Other trigeminal autonomic cephalgias (TAC), not intractable; G43.009 Migraine without aura, not intractable, without status migrainosus; R76.8 Other specified abnormal immunological findings in serum; E34.8 Other specified endocrine disorders; Z79.899 Other long term (current) drug therapy
CPT/HCPCS: 36415; 80053; 82607; 82746; 85025; 85652; 86038; 86039; 86140; 86431

== ENCOUNTER 2025-06-03 08:22 | Outpatient (AMB) | payer OTHER, SELFPAY ==
[2025-06-03 08:28] VITALS: BP 120/76; PULSE 96; O2SAT 99; BMI 29.5
--- NOTE | 2025-06-03 08:28 | A.OFFVIS_ITS ---
Vital Signs 06/03/25 08:28 Height 5 ft 6 in Weight 183 lb BMI 29.5 BP 120/76 Blood Pressure Location Rt brachial Position Sitting Pulse 96 Pulse Source Pulse Oximeter Pulse Oximetry (%) 99 Oxygen Delivery Method Room Air Intake Visit Reasons: Follow up Intake Note: Patient presents for headaches. Patient states I've had headaches my wholke life but in the last years theyb have been very vad alot of pressure pressure in right eye, I'm seeing ENT for all these things. Corner Former Required: No Accompanied by: Self / Same As Patient Allergies blackberry (BLACKBERRY) Allergy (Unknown, Verified 06/03/25 08:37) THROAT CLOSES raspberry (RASPBERRY) Allergy (Unknown, Verified 06/03/25 08:37) THROAT CLOSES Medication List - Last Reconciled 06/03/25 by Magdalene Coffey, JUDITH albuterol sulfate 90 mcg/actuation 2 puffs inhalation Q4H PRN sumatriptan succinate take 1 tab at onset of headache; if no relief may repeat 1 tab after at least 2 hrs; max = 4 tabs/24 hr HPI Comments Details: 35-yr-old female presents for urgent follow-up for a new headache which started 3 weeks ago. She states this headache is in the back of her head, but also on the right side of the head and right retro-orbital pain constant pressure and sharp pain, a/w nausea, vomiting, right eye redness and watering. Denies precipiting cause. She went to the ER on 05/25/25, had head CT which was normal, and was given a migraine cocktail which took the edge off of the sharp pain. She was discharged on prn Sumatriptan- which helped the head pain some, but also caused chest, arm, and stomach pain. 2022 brain MRI w/wo- was unremarkable. Has h/o high positive MADISON- rheumatology did not feel she had a rheumatological d/o. 07/23/2025, Initial HPI: Right-handed 33-yr-old female presents for new pt evaluation of headache disorder. Pt has had headaches since late teens to stacie 20s. Over the years she has had mild headaches and migraine. In the last year or so she has developed a constant pressure type headache and a separate intermittent right-sided stabbing headache. She states before this headache attack, she states her typical migraine was pr july well-controlled. Headache questionnaire: Preceding causes? None Previous work-up? 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 This is a/w watery eye. The pain is severe- stops her in her tracks. Has had 1-2 attacks per day. This occurs a couple of times per week. No known triggers. No know interventions which help. Typical pressure headache characteristics: Prodrome symptoms? unsure Aura? Occassionally may see peripheral flashes of light (either side)- during the headache Location, quality, characteristics? Holocranial- mostly top of head and occipital regions. Pressure. Pain intensity? 5/10 Associated symptoms? Photophobia, a bit more photophobic, occasionally nausea if dizziness, brain fog at times. Focal weakness, Parethesias, Autonomic s/s? red and watery. Postdrome? unsure Triggers? exercise makes the headache Any positional, valsalva, exertional, sexual activity triggers? physical activity Menstrual triggers? none Time of day? no specific time of day Duration and Frequency? near constant for about a year How does headache impact your life? Tries to push through the headache. Current acute medication use/interventions: None Previous acute medication use: Ibuprofen - not very effective. Cyclobenzaprine- ineffective. Current preventative medication use: None Previous preventative medication use: Amitriptyline- did not tolerate. Non-pharmacological interventions: Heat- maybe helps. History of musculoskeletal disorders or injury? Has neck tightness- massage can help sometimes. Recent positive MADISON- ? fibromyalgia. History of concussion/head injury? Has hda 2 concussions- age 15 and age 30. History of mood disorder? h/o depression History of sleep disorder? Sleeping ok now. In the past barely slept- but now adheres to a good sleep hygiene regimen. History of respiratory disease? none History of CV disease? No HTN/HLD. Has Raynoud's. History of coagulopathy? None History of endocrine or metabolic disease? None History of seizure? None History of GI disorder? Occasional constipation. Family planning? Not at this time Family history of migraine or other headache disorder? 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 Head: Yes normocephalic Resp Effort & Inspection: normal respiratory effort and able to speak in complete sentences Back/Spine/Pelvis Other: Mild forward head posture Shoulder slightly stooped forward Bilateral posterior cervical tightness. Cervical ROM: full Left Spurling: normal Right Spurling: normal. Neuro Other: Mild right temporal discomfort on palpitation Mild right ?insertion site of?the coronoid process of the mandible- tenderness General: patient oriented x3 Cranial nerves: Yes CN's II-XII intact bilaterally Cognition (Neuro): normal cognition Gait exam (Neuro): Normal gait present Motor exam (neuro): 5/5 motor strength present throughout Psych Appearance: grossly normal Mental Status: mental status grossly normal Speech and movement: Normal speech and movement present Affect: normal affect Attitude: cooperative Thought process: Normal thought process present Assessment & Plan Assessment & Plan (1) 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 Code(s): G44.099 - Other trigeminal autonomic cephalgias (TAC), not intractable Category: Medical (3) Cyst of pineal gland: Code(s): E34.8 - Other specified endocrine disorders Category: Medical (4) Migraine without aura: Code(s): G43.009 - Migraine without aura, not intractable, without status migrainosus Category: Medical Plan Pt advised to undergo: Labs for inflammatory markers For overall headache management: Discussed importance of good self-care, including but not limited to maintaining a healthy diet, adequate fluid intake, adequate sleep, and engaging in regular physical activity. Track headaches. For right sided headache, probable paroxysmal HC w/ exacerbation of migraine w/o aura: Indomethacin taper 25mg tid x's 1 wk, then 50mg tid x's 1 wk, then 75mg tid * take w/ food. Stop all other NSAIDs. Check CBC/CMP before F/u For acute migraine headache treatment: Discussed importance of taking acute medications at the first sign of headache, however stressed importance of avoiding acute medication overuse (especially with combined headache medications). Stop Sumatriptan 100mg tab- slightly helpful, but not tolerated. Trial Naratriptan 2.5mg tab, 1/2 - 1 tab (1.25-2.5mg) at onset of headache, may repeat in 4 hours. Max of 2 tabs (5mg) per 24 hours. * May adjunct with OTC Tylenol 650mg every 4 hours, Ibuprofen (liquigel) 600mg every 6 hours. * Potential adverse effects of triptans, include but are not limited to nausea, fatigue, chest tightness/tingling (usually passes within a few minutes), medication overuse headaches. Previous acute migraine medication trials: Ibuprofen- ineffective, Cyclobenzaprine- ineffective Acute migraine medication contraindications: None at this time For headache prevention medication: Discussed that preventative medications should be taken routinely as prescribed for best effect, it may take several weeks for full effect to take effect. Resume Riboflavin 400mg qam Resume Magnesium 400mg qhs Start co-Q 10 400mg qam Previous migraine prevention medication trials: Amitriptyline- not tolerated. Migraine prevention medication contraindications: Aimovig d/t symptomatic Raynaud's. Future considerations: BB. Pt to follow-up in 1-2 weeks or sooner prn. Orders: Orders Erythrocyte Sedimentation Rate Today G43.009 - Migraine without aura, not intractable, without status migrainosus, G44.039 - Episodic paroxysmal hemicran ia, not intractable MADISON Reflex Titer and Pattern Today G44.099 - Other trigeminal autonomic cephalgias (TAC), not intractable, R76.8 - Other specified abnormal immunological findings in serum Complete Blood Count Auto Diff 1 Week G44.031 - Episodic paroxysmal hemicrania, intractable, R76.8 - Other specified abnormal immunological findings in serum C Reactive Protein Today G43.009 - Migraine without aura, not intractable, without status migrainosus, G44.039 - Episodic paroxysmal hemicrania, not intractable Vitamin B12 and Folate Today G43.009 - Migraine without aura, not intractable, without status migrainosus, G44.039 - Episodic paroxysmal hemicrania, not intractable Rheumatoid Factor Today G44.099 - Other trigeminal autonomic cephalgias (TAC), not intractable, R76.8 - Other specified abnormal immunological findings in serum Comprehensive [facility]. Panel Fast 1 Week G44.031 - Episodic paroxysmal hemicrania, intractable, R76.8 - Other specified abnormal immunological findings in serum Medications: New indomethacin 1 cap TID x's 1 wk, then 2 caps TID x's 1 week, then 3 caps TID orally 3 times a day; administer with food or milk 270 caps 1RF 30 days G44.039 - Episodic paroxysmal hemicrania, not intractable naratriptan take 1/2 - 1 tab at onset of headache; if no relief may repeat 1 tab after at least 4 hrs; max = 2 tabs/24 hrs orally PRN; 12 tabs 6RF migraine headache 30 days magnesium oxide may hold for loose stools 400 mg PO BEDTIME 90 tabs 3RF 90 days coenzyme Q10 Daily in a.m.. Take with higher fat food 400 mg PO DAILY 90 caps 3RF 90 days riboflavin (vitamin B2) 400 mg PO DAILY 90 tabs 3RF 90 days Discontinued sumatriptan succinate Discontinued Reason: Doctor's Order take 1 tab at onset of headache; if no relief may repeat 1 tab after at least 2 hrs; max = 4 tabs/24 hr 10 tabs 0RF Coding Level of Care Code Est Pt Level 4 (63115) Diagnoses Intractable episodic paroxysmal hemicrania G44.031 Intractability: intractable Headache, 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 Migraine without aura G43.009
--- OUTSIDE RECORDS SUMMARY | 2025-06-03 09:36 | XMS_ITS | Clinical Summary ---
Author Organization [facility] Address [address] [place] [id number] Phone Care Team Providers Care Refining Supervisor Name Role Phone Bailee Melara DO Primary [...] PAP SMEAR 2009 SCREENING FOR DIABETES 2023 INFLUENZA VACCINE (#1) 2025 COVID-19 VACCINE (2024-2 6 season) 2025 03/24/2022, 04/23/2021 Adult Td,Tdap Booster 12/02/2028 12/02/2018 [...] topic Medical Devices Not on file Insurance [facility] [employer] [facility] Care Teams Refining Supervisor Relationship Specialty Start Date End Date Bailee Melara DO [address] [place] [id number] PCP - General Pediatrics 01/01/23 Additional Source Comments The information contained in this document represents components of the legal health record. It is not the complete legal health record.[facility]
== END 2025-06-03 09:30 | disposition home or self-care (01) ==
LOC: HO.HSMS 08:23
PROVIDERS: Visit Provider Nurse Practitioner Family
DX: G44.031 Episodic paroxysmal hemicrania, intractable (principal); G44.099 Other trigeminal autonomic cephalgias (TAC), not intractable; E34.8 Other specified endocrine disorders; G43.009 Migraine without aura, not intractable, without status migrainosus
CPT/HCPCS: 99214

== ENCOUNTER 2025-06-12 13:11 | Outpatient (AMB) | payer OTHER, SELFPAY ==
--- NOTE | 2025-06-12 13:08 | A.OFFVIS_ITS ---
Intake Visit Reasons: Follow up OK PER [facility] Intake Note: Patient presents for headaches. Patient states I've had headaches my wholke life but in the last years theyb have been very vad alot of pressure pressure in right eye, I'm seeing ENT for all these things. Emt Required: No Accompanied by: Self / Same As Patient Allergies blackberry (BLACKBERRY) Allergy (Unknown, Verified 06/12/25 13:09) THROAT CLOSES raspberry (RASPBERRY) Allergy (Unknown, Verified 06/12/25 13:09) THROAT CLOSES Medication List - Last Reconciled 06/12/25 by Magdalene Coffey, JUDITH albuterol sulfate 90 mcg/actuation 2 puffs inhalation Q4H PRN coenzyme Q10 400 mg PO DAILY 90 days indomethacin 1 cap TID x's 1 wk, then 2 caps TID x's 1 week, then 3 caps TID orally 3 times a day; administer with food or milk 30 days magnesium oxide 400 mg PO BEDTIME 90 days naratriptan take 1/2 - 1 tab at onset of headache; if no relief may repeat 1 tab after at least 4 hrs; max = 2 tabs/24 hrs orally PRN; 30 days riboflavin (vitamin B2) 400 mg PO DAILY 90 days HPI Comments Details: 35-year-old female presents for tele follow-up of new/worsening headache. Interval lab work was notable for MADISON 1:640 with Nuclear, Dense Fine Speckled pattern. MADISON titer results have increased since her previous results. ESR and CRP were WNL. Patient reports she just started the Indometacin 25mg tid on Sunday (was on backorder), which seems to be helping some, similar to the sumatriptan without adverse effects. She is taking it with Tylenol. Endorses occasional joint pain, including neck and back stiffness, as well as Raynaud?s phenomenon affecting the toes and fingers. Denies joint swelling, dry eyes, dry mouth, or rashes. Her mother has Crohn?s. 06/03/2025, previous HPI: 35-yr-old female presents for urgent follow-up for a new headache which started 3 weeks ago. She states this headache is in the back of her head, but also on the right side of the head and right retro-orbital pain constant pressure and sharp pain, a/w nausea, vomiting, right eye redness and watering. Denies precipiting cause. She went to the ER on 05/25/25, had head CT which was normal, and was given a migraine cocktail which took the edge off of the sharp pain. She was discharged on prn Sumatriptan- which helped the head pain some, but also caused chest, arm, and stomach pain. 2022 brain MRI w/wo- was unremarkable. Has h/o high positive MADISON- rheumatology did not feel she had a rheumatological d/o. 07/23/2025, Initial HPI: Right-handed 33-yr-old female presents for new pt evaluation of headache disorder. Pt has had headaches since late teens to stacie 20s. Over the years she has had mild headaches and migraine. In the last year or so she has developed a constant pressure type headache and a separate intermittent right-sided stabbing headache. She states before this headache attack, she states her typical migraine was pretty well-controlled. Headache questionnaire: Preceding causes? None Previous work-up? 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 This is a/w watery eye. The pain is severe- stops her in her tracks. Has had 1-2 attacks per day. This occurs a couple of times per week. No known triggers. No know interventions which help. Typical pressure headache characteristics: Prodrome symptoms? unsure Aura? Occassionally may see peripheral flashes of light (either side)- during the headache Location, quality, characteristics? Holocranial- mostly top of head and occipital regions. Pressure. Pain intensity? 5/10 Associated symptoms? Photophobia, a bit more photophobic, occasionally nausea if dizziness, brain fog at times. Focal weakness, Parethesias, Autonomic s/s? red and watery. Postdrome? unsure Triggers? exercise makes the headache Any positional, valsalva, exertional, sexual activity triggers? physical activity Menstrual triggers? none Time of day? no specific time of day Duration and Frequency? near constant for about a year How does headache impact your life? Tries to push through the headache. Current acute medication use/interventions: None Previous acute medication use: Ibuprofen - not very effective. Cyclobenzaprine- ineffective. Current preventative medication use: None Previous preventative medication use: Amitriptyline- did not tolerate. Non-pharmacological interventions: Heat- maybe helps. History of musculoskeletal disorders or injury? Has neck tightness- massage can help sometimes. Recent positive MADISON- ? fibromyalgia. History of concussion/head injury? Has hda 2 concussions- age 15 and age 30. History of mood disorder? h/o depression History of sleep disorder? Sleeping ok now. In the past barely slept- but now adheres to a good sleep hygiene regimen. History of respiratory disease? none History of CV disease? No HTN/HLD. Has Raynoud's. History of coagulopathy? None History of endocrine or metabolic disease? None History of seizure? None History of GI disorder? Occasional constipation. Family planning? Not at this time Family history of migraine or other headache disorder? 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 Head: Yes normocephalic Resp Effort & Inspection: normal respiratory effort and able to speak in complete sentences Back/Spine/Pelvis Other: Mild forward head posture Shoulder slightly stooped forward Bilateral posterior cervical tightness. Cervical ROM: full Left Spurling: normal Right Spurling: normal. Neuro Other: Mild right temporal discomfort on palpitation Mild right ?insertion site of?the coronoid process of the mandible- tenderness General: patient oriented x3 Cranial nerves: Yes CN's II-XII intact bilaterally Cognition (Neuro): normal cognition Gait exam (Neuro): Normal gait present Motor exam (neuro): 5/5 motor strength present throughout Psych Appearance: grossly normal Mental Status: mental status grossly normal Speech and movement: Normal speech and movement present Affect: normal affect Attitude: cooperative Thought process: Normal thought process present Telehealth Telehealth Telehealth Platform: [employer] Location of provider rendering services: practice address Location of patient: address on file Patient Identification confirmed using: Name, : Yes Telehealth method: video Patient verbally consented to treatment: Yes Patient verbally consented to billing insurance company: Yes Patient informed of any privacy concerns related to visit: Yes Minutes spent on Phone/Video with Pt.: 12 Assessment & Plan Assessment & Plan (1) 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 Code(s): G44.099 - Other trigeminal autonomic cephalgias (TAC), not intractable Category: Medical (3) Cyst of pineal gland: Code(s): E34.8 - Other specified endocrine disorders Category: Medical (4) Migraine without aura: Code(s): G43.009 - Migraine without aura, not intractable, without status migrainosus Category: Medical Qualifiers: Status migrainosus presence: without status migrainosus Intractability: not intractable Qualified Code(s): G43.009 - Migraine without aura, not intractable, without status migrainosus Plan Reviewed labs, notable for increased MADISON positivity. We will request rheumatology evaluation. For overall headache management: Discussed importance of good self-care, including but not limited to maintaining a healthy diet, adequate fluid intake, adequate sleep, and engaging in regular physical activity. Track headaches. For right sided headache, probable paroxysmal HC w/ exacerbation of migraine w/o aura: * Patient has had some but not yet full benefit to starting indomethacin * Continue Indomethacin taper 25mg tid x's 1 wk, then 50mg tid x's 1 wk, then 75mg tid * take w/ food. * Stop all other NSAIDs. * Check CBC and CMP before increasing indomethacin to 50 mg 3 times daily (t.i.d.), and repeat the CBC and CMP before increasing indomethacin to 75 mg t.i.d. For acute migraine headache treatment: Discussed importance of taking acute medications at the first sign of headache, however stressed importance of avoiding acute medication overuse (especially with combined headache medications). Trial Naratriptan 2.5mg tab, 1/2 - 1 tab (1.25-2.5mg) at onset of headache, may repeat in 4 hours. Max of 2 tabs (5mg) per 24 hours. * May adjunct with OTC Tylenol 650mg every 4 hours, Ibuprofen (liquigel) 600mg every 6 hours. * Potential adverse effects of triptans, include but are not limited to nausea, fatigue, chest tightness/tingling (usually passes within a few minutes), medication overuse headaches. Previous acute migraine medication trials: Ibuprofen- ineffective, Cyclobenzaprine- ineffective Acute migraine medication contraindications: None at this time For headache prevention medication: Discussed that preventative medications should be taken routinely as prescribed for best effect, it may take several weeks for full effect to take effect. * Riboflavin 400mg qam * Magnesium 400mg qhs * Co-Q 10 400mg qam Previous migraine prevention medication trials: Amitriptyline- not tolerated. Migraine prevention medication contraindications: Aimovig d/t symptomatic Raynaud's. Future considerations: BB. Pt to follow-up in 2-4 weeks or sooner prn. Orders: Orders Comprehensive [facility]. Panel Fast 06/12/25 G. - Other chronic pain, M35.3 - Polymyalgia rheumatica, R51.9 - Headache, unspecified, R76.8 - Other specified abnormal immunological findings in serum Complete Blood Count Auto Diff 06/12/25 G89. - Other chronic pain, M35.3 - Polymyalgia rheumatica, R51.9 - Headache, unspecified, R76.8 - Other specified abnormal immunological findings in serum Complete Blood Count Auto Diff 1 Week - Other chronic pain, M35.3 - Polymyalgia rheumatica, R51.9 - Headache, unspecified, R76.8 - Other specified abnormal immunological findings in serum Basic Metabolic Panel 1 Week . - Other chronic pain, M35.3 - Polymyalgia rheumatica, R51.9 - Headache, unspecified, R76.8 - Other specified abnormal immunological findings in serum Referrals Rheumatology Referral G89.29 - Other chronic pain, I73.00 - Raynaud's syndrome without gangrene, R51.9 - Headache, unspecified, R76.8 - Other specified abnormal immunological findings in serum Coding Level of Care Code Tele Est Pt Level 4 (13506) Diagnoses Intractable episodic paroxysmal hemicrania G44.031 Intractability: intractable Headache, 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 Migraine without aura and without status migrainosus, not intractable G43.009 Status migrainosus presence: without status migrainosus Intractability: not intractable
== END 2025-06-12 16:18 | disposition home or self-care (01) ==
PROVIDERS: Visit Provider Nurse Practitioner Family
DX: G44.031 Episodic paroxysmal hemicrania, intractable (principal); G44.099 Other trigeminal autonomic cephalgias (TAC), not intractable; E34.8 Other specified endocrine disorders; G43.009 Migraine without aura, not intractable, without status migrainosus
CPT/HCPCS: 99214

== ENCOUNTER 2025-08-14 13:41 | Outpatient (AMB) | payer OTHER, SELFPAY ==
--- NOTE | 2025-08-14 14:02 | A.OFFVIS_ITS ---
Vital Signs 08/14/25 14:08 Height 5 ft 6 in Weight 165 lb 2.02 oz BMI 26.6 BP 115/72 Blood Pressure Location Lt brachial Position Sitting Pulse 85 Pulse Source Pulse Oximeter Pulse Oximetry (%) 99 Oxygen Delivery Method Room Air Intake Visit Reasons: Raynaud's syndrome Intake Note: Patient presents for Raynaud's Syndrome follow up. Allergies blackberry (BLACKBERRY) Allergy (Unknown, Verified 08/14/25 14:07) THROAT CLOSES raspberry (RASPBERRY) Allergy (Unknown, Verified 08/14/25 14:07) THROAT CLOSES HPI Comments Details: Patient is a 35-year-old female with migraines, Raynaud's and a positive MADISON here today for follow up Interval History: Patient last seen 04/11/[address] Phipps - new patient visit to evaluate positive MADISON - no evidence of autoimmune disease at that time Today - Here for re evaluation - Since the last visit had an episode of headache/migraine lasting for 1.5 months - Not responsive to medications - CT scan normal, no MRI done - Stiffness: affecting hips and back. Denies affecting hands and feet - History of trauma to left ankle with ORIF of that ankle - Raynaud's: fingers change to white in the cold, no ulcers - Denies rashes (but notes she sometimes gets facial flushing), photosensitivity, alopecia, oral/nasal ulcers,lymphadenopathy, chest pain/shortness of breath, foamy urine, lower extremity edema, muscle weakness - Occassional dry eyes and dry mouth - Also denies history of seizure, CVA, psychosis, history of kidney problems, history of cytopenias, history of VTE including PE or DVTs - +2 (miscarriages at 7 weeks and 12 weeks) Social Hx: at 28 of a heart attack in 2018 No smoking, drinking or drug use Rheumatologic History: Initial History: This is a 32-year-old female who is referred for evaluation of a positive MADISON. Over the last 1-2 years patient has been having multiple symptoms including neck and upper back tension as well as daily headaches that vary in severity. She also has GI upset, heartburn. She was evaluated by GI on found to have polyps as well as GERD. In regard symptoms improved with PPI. She states that she was evaluated by neurologist by [facility] recently and was told that her headaches are likely due to spasm and a muscle relaxant was prescribed which also did not provide much help. States that her mother has inflammatory bowel disease. Patient has difficulty falling and staying asleep. She is unaware of any history of DVT/PE. Over the last year patient states that her fingers change color to white in the cold, never change to blue or purple. Sometimes patient put her hands under warm water to reverse the color to normal. Denies any skin rashes. Denies any swollen joints. Denies stiffness. 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 Review of Systems Narrative Review of Systems Constitutional: Denies fever, chills, weight loss ENT: Denies vision changes, eye pain or eye redness, dental caries, dry mouth GI: Denies nausea, vomiting, diarrhea, abdominal pain, change in BM Pulm: Denies SOB, JACOBO, hemoptysis, wheezing Cards: Denies chest pain, palpitations Skin: Denies nail changes, photosensitivity, TOURS HOSTESS: Denies weakness, paresthesias, recurrent falls MSK: as per HPI All other systems reviewed and are unremarkable except noted above Physical Exam Exam Exam: Vital signs reviewed Physical Examination CONSTITUITIONAL Patient alert and cooperative. Well appearing and in no apparent painful distress MSK Hands * Right Hand: Able to make a fist. No swelling or tenderness to palpation of the MCPs, PIPs or DIPs. * Left Hand: Able to make a fist. No swelling or tenderness to palpation of the MCPs, PIPs or DIPs. . Wrists * Right Wrist: Full ROM to flexion and extension. No swelling or TTP * Left Wrist: Full ROM to flexion and extension. No swelling or TTP Elbows * Right Elbow: Full ROM. No swelling or TTP. No TTP of the medial epicondyle. No TTP of the lateral epicondyle * Left Elbow: Full ROM. No swelling or TTP. No TTP of the medial epicondyle. No TTP of the lateral epicondyle Shoulders * Right shoulder: Full ROM. No swelling noted. No TTP of the AC joint. No TTP of the subacromial bursa. No TTP of the posterior shoulder * Left shoulder: Full ROM. No swelling noted. No TTP of the AC joint. No TTP of the subacromial bursa. No TTP of the posterior shoulder Knees * Right knee: Full ROM. No swelling noted. No TTP of the knee joint line. No TTP of pes anserine bursa * Left knee: Full ROM. No swelling noted. No TTP of the knee joint line. No TTP of pes anserine bursa. Ankles * Right ankle: Good ankle dorsiflexion and plantar flexion. No swelling. No TTP of the ankle joint * Left ankle: Good ankle dorsiflexion and plantar flexion. No swelling. No TTP of the ankle joint Feet * Right foot: Negative squeeze test * Left foot: Negative squeeze test Tender points? * No tenderness to palpation of the bilateral trapezius, supraspinatus, anterior costochondral junctions, bilateral suboccipital muscle insertions SKIN No rashes Vital Signs: Last Vital Signs Pulse 85 08/14/25 14:08 BP 115/72 08/14/25 14:08 Pulse Ox 99 08/14/25 14:08 Oxygen Delivery Method Room Air 08/14/25 14:08 BMI result Body Mass Index 26.6 Results Reviewed Results Reviewed: Laboratory Tests 06/03/25 09:54 WBC 5.2 RBC 4.58 Hgb 13.8 Hct 42.2 Plt Count 299 ESR 6 Sodium 143 Potassium 4.4 Chloride 109 H Carbon Dioxide 25 BUN 12 Creatinine 0.68 AST 23 ALT 37 H C-Reactive Protein 0.14 Rheumatoid Factor < 13.0 MADISON Screen POSITIVE A MADISON Titer 1:640 H Assessment & Plan Assessment & Plan (1) MADISON positive: Code(s): R76.8 - Other specified abnormal immunological findings in serum Category: Medical Plan: #Positive MADISON The presence of antinuclear antibodies (MADISON) is mainly associated with connective tissue diseases (CTD). ?However, their presence is found in healthy people especially in women and patients >65. ?In healthy individuals, the frequency of MADISON has been shown to be 31.7% of individuals at 1:40 serum dilution, 13.3% at 1:80, 5.0% at 1:160, and 3.3% at 1:320 (2). Some drugs and xenobiotics are also important for the development of MADISON (hydralazine, hydrochlorothiazide, minocycline, terbinafine, ciprofloxacin, furosemide, omeprazole). Moreover, the deficiency of vitamin D in the body of patients correlates with occurrence of these antibodies (1). At this time there is low suspicion for a connective tissue disease. ? 1. Ela?aren Mo, Carmen Saleem, Torey Mackenzie. Antinuclear antibodies in healthy people and non-rheumatic diseases - diagnostic and clinical implications. Reumatologia. 2018;56(4):243-248. doi: 10.5114/reum.2018.66446. Epub 2017May 24. PMID: [id number]; PMCID: [id number]. 2. Eckert EM, Nadia TE, Ctay JS, Lori B, Og R, Roberto MJ, Josue T, Korey JA, Carlo JR, Isiah RG, Andrei RN, Lauryn JS, Kishore NF, Lamonte RJ, Tyler Y, Savi A, Ezequiel MR, Zari BYNUM. Range of antinuclear antibodies in healthy individuals. Arthritis Rheum. 1996;40(9):1601-11. doi: 10.1002/art.6520625981. PMID: 3087864. Plan This is my 1st visit with the patient. I spent 40 minutes reviewing the record and labs, taking a history, examining the patient, discussing the treatment plan, explaining the disease process, answering questions and documenting in the medical record Coding Level of Care Code Est Pt Level 5 (43885) Diagnoses MADISON positive R76.8
[2025-08-14 14:08] VITALS: BP 115/72; PULSE 85; O2SAT 99; BMI 26.6
--- OUTSIDE RECORDS SUMMARY | 2025-08-14 14:13 | XMS_ITS | Clinical Summary ---
Author Organization [facility] Address [address] [facility] [address] [place] [phone] Phone Care Team Providers Care Music Ministries Director Name Role Phone Bailee Melara DO Primary [...] Devices Not on file Insurance [facility] [employer] [employer] [facility] [employer] Member Subscriber Plan / Payer (Ef fective 2022-Present) Name:Rashida Brink Relation to Subscriber:Self Name:Rashida Brink Payer ID:Not on file Type:Medicaid Address: [address] [id number] [facility] [employer] Member Subscriber Plan / Payer (Ef fective 2022-Present) Name:Rashida Brink Relation to Subscriber:Self Name:Rashida Brink Payer ID:Not on file Type:Medicaid Address: [address] [address] [facility] [employer] [employer] Member Subscriber Plan / Payer (Ef fective 2022-Present) Name:Rashida Brink Relation to Subscriber:Self Name:Rashida Brink Payer ID:Not on file Type:Medicaid Address: [address] [address] [facility] [employer] [employer] [facility] Care Teams Music Ministries Director Relationship Specialty Start Date End Date Bailee Melara DO [address] [place] [phone] PCP - General Pediatrics 01/01/23 Additional Source Comments The information contained in this document represents components of the legal health record. It is not the complete legal health record.[facility]
== END 2025-08-14 15:26 | disposition home or self-care (01) ==
LOC: HO.RHES 13:42
PROVIDERS: Visit Provider Student in an Organized Health Care Education/Training Program
DX: R76.89 Other specified abnormal immunological findings in serum (principal)
CPT/HCPCS: 99215

== ENCOUNTER 2025-08-25 09:38 | Outpatient (AMB) | payer OTHER, SELFPAY ==
--- NOTE | 2025-08-25 09:34 | A.OFFVIS_ITS ---
Intake Visit Reasons: Follow up Intake Note: Patient presents for headaches. Patient states I've had headaches my wholke life but in the last years theyb have been very vad alot of pressure pressure in right eye, I'm seeing ENT for all these things. Retail Department Supervisor Required: No Accompanied by: Self / Same As Patient Allergies blackberry (BLACKBERRY) Allergy (Unknown, Verified 08/14/25 14:07) THROAT CLOSES raspberry (RASPBERRY) Allergy (Unknown, Verified 08/14/25 14:07) THROAT CLOSES Medication List - Last Reconciled 08/25/25 by Magdalene Coffey, JUDITH albuterol sulfate 90 mcg/actuation 2 puffs inhalation Q4H PRN coenzyme Q10 400 mg PO DAILY 90 days indomethacin 1 cap TID x's 1 wk, then 2 caps TID x's 1 week, then 3 caps TID orally 3 times a day; administer with food or milk 30 days magnesium oxide 400 mg PO BEDTIME 90 days naratriptan take 1/2 - 1 tab at onset of headache; if no relief may repeat 1 tab after at least 4 hrs; max = 2 tabs/24 hrs orally PRN; 30 days riboflavin (vitamin B2) 400 mg PO DAILY 90 days HPI Comments Details: 35-year-old female presents for tele follow-up of new/worsening headache. She saw rheumatolgy, who did not feel that she has an auto-immune process at this time. She reports that the right-sided headache resolved after starting indomethacin and increasing the dose from 25 mg t.i.d. to 50 mg t.i.d.. She then continue the indomethacin titration to 75 mg TID, but then decrease the dose to 25 mg TID until she completed her entire supply of indomethacin- without experiencing a recurrence of right-sided headache. She has not had a right sided headache since. She states she has a daily low-level occipital pressure, which she treats with OTC Tylenol. She is typically using OTC Tylenol every other day. She has not yet tried naratriptan. She states her insurance did not cover the riboflavin or coenzyme Q10 so she has not started these She has started magnesium, which is helping her to sleep a bit better. Clarified her asthma diagnosis today, she is prone to increased asthma symptoms during season changes and when sick 06/12/2025, HPI: Interval lab work was notable for MADISON 1:640 with Nuclear, Dense Fine Speckled pattern. MADISON titer results have increased since her previous results. ESR and CRP were WNL. Patient reports she just started the Indometacin 25mg tid on Sunday (was on backorder), which seems to be helping some, similar to the sumatriptan without adverse effects. She is taking it with Tylenol. Endorses occasional joint pain, including neck and back stiffness, as well as Raynaud?s phenomenon affecting the toes and fingers. Denies joint swelling, dry eyes, dry mouth, or rashes. Her mother has Crohn?s. 06/03/2025, previous HPI: 35-yr-old female presents for urgent follow-up for a new headache which started 3 weeks ago. She states this headache is in the back of her head, but also on the right side of the head and right retro-orbital pain constant pressure and sharp pain, a/w nausea, vomiting, right eye redness and watering. Denies precipiting cause. She went to the ER on 05/25/25, had head CT which was normal, and was given a migraine cocktail which took the edge off of the sharp pain. She was discharged on prn Sumatriptan- which helped the head pain some, but also caused chest, arm, and stomach pain. 2022 brain MRI w/wo- was unremarkable. Has h/o high positive MADISON- rheumatology did not feel she had a rheumatological d/o. 07/23/2025, Initial HPI: Right-handed 33-yr-old female presents for new pt evaluation of headache disorder. Pt has had headaches since late teens to stacie 20s. Over the years she has had mild headaches and migraine. In the last year or so she has developed a constant pressure type headache and a separate intermittent right-sided stabbing headache. She states before this headache attack, she states her typical migraine was pretty well-controlled. Headache questionnaire: Preceding causes? None Previous work-up? 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 This is a/w watery eye. The pain is severe- stops her in her tracks. Has had 1-2 attacks per day. This occurs a couple of times per week. No known triggers. No know interventions which help. Typical pressure headache characteristics: Prodrome symptoms? unsure Aura? Occassionally may see peripheral flashes of light (either side)- during the headache Location, quality, characteristics? Holocranial- mostly top of head and occipital regions. Pressure. Pain intensity? 5/10 Associated symptoms? Photophobia, a bit more photophobic, occasionally nausea if dizziness, brain fog at times. Focal weakness, Parethesias, Autonomic s/s? red and watery. Postdrome? unsure Triggers? exercise makes the headache Any positional, valsalva, exertional, sexual activity triggers? physical activity Menstrual triggers? none Time of day? no specific time of day Duration and Frequency? near constant for about a year How does headache impact your life? Tries to push through the headache. Current acute medication use/interventions: None Previous acute medication use: Ibuprofen - not very effective. Cyclobenzaprine- ineffective. Current preventative medication use: None Previous preventative medication use: Amitriptyline- did not tolerate. Non-pharmacological interventions: Heat- maybe helps. History of musculoskeletal disorders or injury? Has neck tightness- massage can help sometimes. Recent positive MADISON- ? fibromyalgia. History of concussion/head injury? Has hda 2 concussions- age 15 and age 30. History of mood disorder? h/o depression History of sleep disorder? Sleeping ok now. In the past barely slept- but now adheres to a good sleep hygiene regimen. History of respiratory disease? none History of CV disease? No HTN/HLD. Has Raynoud's. History of coagulopathy? None History of endocrine or metabolic disease? None History of seizure? None History of GI disorder? Occasional constipation. Family planning? Not at this time Family history of migraine or other headache disorder? 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 Head: Yes normocephalic Resp Effort & Inspection: normal respiratory effort and able to speak in complete sentences Back/Spine/Pelvis Other: Mild forward head posture Shoulder slightly stooped forward Bilateral posterior cervical tightness. Cervical ROM: full Left Spurling: normal Right Spurling: normal. Neuro General: patient oriented x3 Cranial nerves: Yes Normal facial strength present Cognition (Neuro): normal cognition Psych Appearance: grossly normal Mental Status: mental status grossly normal Speech and movement: Normal speech and movement present Affect: normal affect Attitude: cooperative Thought process: Normal thought process present Telehealth Telehealth Telehealth [facility] Location of provider rendering services: practice address Location of patient: address on file Patient Identification confirmed using: Name, : Yes Telehealth method: video Patient verbally consented to treatment: Yes Patient verbally consented to billing insurance company: Yes Patient informed of any privacy concerns related to visit: Yes Minutes spent on Phone/Video with Pt.: 21 Assessment & Plan Assessment & Plan (1) Episodic paroxysmal hemicrania: Comment: Indomethacin responsive Code(s): G44.039 - Episodic paroxysmal hemicrania, not intractable Category: Medical Qualifiers: Intractability: intractable Qualified Code(s): G44.031 - Episodic paroxysmal hemicrania, intractable (2) Migraine without aura: Code(s): G43.009 - Migraine without aura, not intractable, without status migrainosus Category: Medical Qualifiers: Status migrainosus presence: without status migrainosus Intractability: not intractable Qualified Code(s): G43.009 - Migraine without aura, not intractable, without status migrainosus (3) Headache, trigeminal autonomic: Comment: Right sided stabbing headache x's 20 seconds, a/w right eye watery eye. Code(s): G44.099 - Other trigeminal autonomic cephalgias (TAC), not intractable Category: Medical (4) Cyst of pineal gland: Code(s): E34.8 - Other specified endocrine disorders Category: Medical Plan For overall headache management: Discussed importance of good self-care, including but not limited to maintaining a healthy diet, adequate fluid intake, adequate sleep, and engaging in regular physical activity. Track headaches. For right sided paroxysmal HC, which is indomethacin responsive: * Patient has had some but not yet full benefit to starting indomethacin * Stop Indomethacin taper- completed * Start indomethacin 25mg cap- 2 caps 3 times a day at onset of right-sided headache, then continue x's 1-2 weeks after the headache resolves again until headache resolves * take w/ food. * Stop all other NSAIDs. For acute migraine headache treatment: Discussed importance of taking acute medications at the first sign of headache, however stressed importance of avoiding acute medication overuse (especially with combined headache medications). Trial Naratriptan 2.5mg tab, 1/2 - 1 tab (1.25-2.5mg) at onset of headache, may repeat in 4 hours. Max of 2 tabs (5mg) per 24 hours. * May adjunct with OTC Tylenol 650mg every 4 hours, Ibuprofen (liquigel) 600mg every 6 hours. * Potential adverse effects of triptans, include but are not limited to nausea, fatigue, chest tightness/tingling (usually passes within a few minutes), medication overuse headaches. Previous acute migraine medication trials: Ibuprofen- ineffective, Cyclobenzaprine- ineffective Acute migraine medication contraindications: None at this time For headache prevention medication: Discussed that preventative medications should be taken routinely as prescribed for best effect, it may take several weeks for full effect to take effect. * Start Riboflavin 400mg qam * Can buy this online * Continue Magnesium 400mg qhs * Start Co-Q 10 400mg qam * Can buy this online Previous migraine prevention medication trials: Amitriptyline- not tolerated. Migraine prevention medication contraindications: Aimovig d/t symptomatic Raynaud's. Beta-blockers due to symptomatic asthma diagnosis. Future considerations: Ajovy- as this can be given as 675 mg every 3 months. Pt to follow-up in 6 months or sooner prn. Medications: Changed From indomethacin 1 cap TID x's 1 wk, then 2 caps TID x's 1 week, then 3 caps TID orally 3 times a day; administer with food or milk 30 days 270 caps 1RF G44.039 - Episodic paroxysmal hemicrania, not intractable To indomethacin 50 mg (2 x 25 mg) PO TID PRN 180 caps 1RF paroxysmal hemicrania 30 days G44.039 - Episodic paroxysmal hemicrania, not intractable Coding Level of Care Code Tele Est Pt Level 4 (87713) Diagnoses Intractable episodic paroxysmal hemicrania G44.031 Intractability: intractable Migraine without aura and without status migrainosus, not intractable G43.009 Status migrainosus presence: without status migrainosus Intractability: not intractable Headache, 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
--- OUTSIDE RECORDS SUMMARY | 2025-08-25 10:33 | XMS_ITS | Clinical Summary ---
Author Organization [facility] Address [address] [facility] [address] [place] [phone] Phone Care Team Providers Care Sheltered Workshop Worker Name Role Phone Bailee Melara DO Primary [...] Devices Not on file Insurance [facility] [employer] [employer] [facility] [employer]CO [facility] Care Teams Sheltered Workshop Worker Relationship Specialty Start Date End Date Bailee Melara DO [address] [place] [phone] PCP - General Pediatrics 01/01/23 Additional Source Comments The information contained in this document represents components of the legal health record. It is not the complete legal health record.[facility]
== END 2025-08-25 15:06 | disposition home or self-care (01) ==
LOC: HO.HSMS 09:38
PROVIDERS: Visit Provider Nurse Practitioner Family
DX: G44.031 Episodic paroxysmal hemicrania, intractable (principal); G43.009 Migraine without aura, not intractable, without status migrainosus; G44.099 Other trigeminal autonomic cephalgias (TAC), not intractable; E34.8 Other specified endocrine disorders
CPT/HCPCS: 99214